=== PATIENT | male | born 1985 | race Caucasian/White ===

== ENCOUNTER 2016-09-30 16:42 | Emergency (ER) | payer SELFPAY ==
[~2016-09-30] VITALS: Ht 185.4 cm; Wt 90.0 kg
[2016-09-30 16:47] VITALS: BP 117/60; PULSE 86; RESP 17; TEMP 98.9; O2SAT 100
--- NOTE | 2016-09-30 16:51 | PD ---
Physical Exam Date Seen by Provider: Sep 30, 2016 Time Seen by Provider: 16:48 Narrative 31 y/o male with IV drug use Hx. of dilaudid use. Here with multiple cellulitis and abscess areas to both hands and wrists. Denies fever or chills. V/S stable. Awaiting bed placement. Data Data Last Documented VS Vital Signs Date Time Temp Pulse Resp B/P Pulse Ox O2 Delivery O2 Flow Rate FiO2 09/30/16 16:47 98.9 86 17 117/60 100 MDM Medical Record Reviewed: Yes Supervised Visit with EDEL: Yes Scripts No Active Prescriptions or Reported Meds Condition: Stable Fredy Williamson Sep 30, 2016 16:51
--- NOTE | 2016-09-30 17:52 | PD ---
HPI Chief Complaint: Skin Problem Time Seen by Provider: 17:49 Travel History International Travel<30 days: No Contact w/Intl Traveler<30days: No Traveled to known affect area: No History of Present Illness HPI 31-year-old male presents to the emergency department for evaluation of erythema , drainage, swelling to bilateral arms. Patient states that he injects IV Dilaudid. His last use he states was 4 days ago. He states he has had abscesses to his bilateral arms for approximately 2-3 months. He had a friend who gave him 3 weeks of Augmentin which he took. He states this was approximately one month ago. He states this did help his cellulitis, but it has not went away. He denies any fevers. He does report a history of hepatitis. He is not currently on any medications. [facility] Past Medical History Diminished Hearing: No Hepatitis: Yes (hep c) Social History Alcohol Use: No Tobacco Use: Yes (/2 ppd) Substance Use: Yes (IV dilaudid and marijuana) Allergies-Medications (Allergen,Severity, Reaction): Coded Allergies: No Known Allergies (Verified , 09/30/16) Reported Meds & Prescriptions Reported Meds & Active Scripts Active No Active Prescriptions or Reported Medications Review of Systems Except as stated in HPI: all other systems reviewed are Neg Physical Exam Narrative GENERAL: Well-nourished, well-developed male patient, afebrile. SKIN: Focused skin assessment warm/dry. Patient has diffuse swelling, drainage , erythema to bilateral forearms and hands. HEAD: Normocephalic. Atraumatic. EYES: No scleral icterus. No injection or drainage. NECK: Supple, trachea midline. No JVD or lymphadenopathy. CARDIOVASCULAR: Regular rate and rhythm without murmurs, gallops, or rubs. RESPIRATORY: Breath sounds equal bilaterally. No accessory muscle use. Lungs sounds are clear to auscultation. GASTROINTESTINAL: Abdomen soft, non-tender, nondistended. MUSCULOSKELETAL: No cyanosis. BACK: Nontender without obvious deformity. No CVA tenderness. Data Data Last Documented VS Vital Signs Date Time Temp Pulse Resp B/P Pulse Ox O2 Delivery O2 Flow Rate FiO2 09/30/16 16:47 98.9 86 17 117/60 100 Orders Iv Access Insert/Monitor (09/30/16 17:47) Complete Blood Count With Diff (09/30/16 17:47) Comprehensive Metabolic Panel (09/30/16 17:47) Blood Culture (09/30/16 17:47) Lactic Acid Sepsis Protocol (09/30/16 17:47) Vancomycin Inj (Vancomycin Inj) (09/30/16 18:00) Wound Culture And Gram Stain (09/30/16 17:48) [facility] Medical Decision Making Medical Screen Exam Complete: Yes Emergency Medical Condition: Yes Medical Record Reviewed: Yes Differential Diagnosis Cellulitis versus abscess versus sepsis Narrative Course 31-year-old male presents to the emergency department for evaluation of infection to his bilateral forearms he has had for approximately 2-3 months after injecting IV Dilaudid. He has taken 3 weeks worth of Augmentin approximately one month ago. Physical exam reveals significant cellulitis and drainage to the bilateral forearms. IV access is established. CBC, CMP, lactic acid, blood cultures 2, wound culture ordered and pending. Patient is given vancomycin 1 g IV. Patient does not want labs or IV access. He declines IV antibiotics. He declines admission. He states that he does not want to stay in the hospital because he cannot lose his job. Patient will be discharged prescription for Bactrim and clindamycin. He is aware of the risk of leaving AGAINST MEDICAL ADVICE up to and including . AMA: The risks of leaving against medical advice without further evaluation treatment were discussed with the patient. These risks include cardiac dysfunction, cardiac dysrhythmia, possible heart attack, possible stroke or . The patient indicated understanding of these risks and appeared to have the capacity to make this decision. Diagnosis Primary Impression: Left against medical advice Additional Impression: Cellulitis Qualified Code: L03.119 - Cellulitis of upper extremity, unspecified laterality Additional Instructions: Clean wounds to bilateral arms twice daily with soap and water. Keep wounds clean and dry. Take antibiotics as directed. Bactrim is free of [employer]. Clindamycin is inexpensive at [facility]. Stop injecting drugs. Follow-up with your primary care physician. Return to the emergency department for any acute worsening of symptoms. Med/Other Pt SpecificInfo: Prescription(s) given Scripts Sulfamethoxazole-Trimethoprim (Bactrim DS)800-160 Mg Tab1 Tab PO BID 14 Days Ref 0 Prov:Veronica Miller 09/30/16 Clindamycin 150 Mg [id number] Mg PO Q6H 14 Days Ref 0 Prov:Veronica Miller 09/30/16 Disposition: 07 AGAINST MEDICAL ADVICE Veronica Miller Sep 30, 2016 17:52
[2016-09-30] MEDS ORDERED: VANCOMYCIN INJ 1,000 MG in SODIUM CHLOR 0.9% 250 ML INJ 250 ML IV ONE (18:00)
[2016-09-30] MEDS ORDERED: BACT800T5 PO (18:07)
[2016-09-30] MEDS ORDERED: CLIN1CAP5 PO (18:07)
[2016-09-30 18:14] VITALS: PULSE 88; RESP 16; TEMP 99.1
[2016-09-30] MEDS ORDERED: SULFAMETHOXAZOLE-TRIMETHOPRIM DS 800-160 MG TAB PO ONE (18:15)
[2016-09-30] MEDS ORDERED: CLINDAMYCIN 150 MG CAP PO ONE (18:15)
== END 2016-09-30 18:44 | disposition left against medical advice (07) ==
LOC: NEPC 16:42
DX: L03.114 Cellulitis of left upper limb (principal); L03.113 Cellulitis of right upper limb; Z53.21 Procedure and treatment not carried out due to patient leaving prior to being seen by health care provider; B95.61 Methicillin susceptible Staphylococcus aureus infection as the cause of diseases classified elsewhere; B96.89 Other specified bacterial agents as the cause of diseases classified elsewhere; F17.210 Nicotine dependence, cigarettes, uncomplicated; F12.90 Cannabis use, unspecified, uncomplicated; F11.90 Opioid use, unspecified, uncomplicated
CPT/HCPCS: 86403; 87070; 87077; 87186; 87205; 99283

== ENCOUNTER 2016-12-09 06:51 | Emergency (ER) | payer SELFPAY ==
[~2016-12-09] VITALS: Ht 180.3 cm; Wt 77.0 kg
[~2016-12-09 06:51] MED LIST: BACT800T5 PO; CLIN1CAP5 PO
[2016-12-09 06:58] VITALS: BP 146/66; PULSE 102; RESP 16; TEMP 98.9; O2SAT 99
[2016-12-09] MEDS ORDERED: VANCOMYCIN INJ 1,150 MG in SODIUM CHLOR 0.9% 250 ML INJ 250 ML IV ONE (07:30)
[2016-12-09] MEDS ORDERED: KETOROLAC TROMETHAMINE 30 MG/ML (IVP) VIAL IV PUSH ONE (07:30)
--- NOTE | 2016-12-09 07:35 | PD ---
HPI Chief Complaint: Skin Problem Time Seen by Provider: 07:15 Travel History International Travel<30 days: No Contact w/Intl Traveler<30days: No Traveled to known affect area: No History of Present Illness HPI 31yo M with PMH of Hep C, IVDA presents to the ED with c/o bilateral forearm wounds for 2 months. Pt states his right forearm was draining mixture of purulent discharge and blood today and he thinks it is infected. Denies any fever, chest pain, sob, n/v, abdominal pain, focal weakness or numbness. Pt has been here in September and signed out against medical advice so this wound has been there for more than 2 months. States he last use IV dilaudid a few months ago. PFSH Past Medical History Diminished Hearing: No Hepatitis: Yes (hep c) Past Surgical History Surgical History: No Previous Surgery Social History Alcohol Use: No Tobacco Use: Yes (/2 ppd) Substance Use: Yes (IV dilaudid and marijuana) Allergies-Medications (Allergen,Severity, Reaction): Coded Allergies: No Known Allergies (Verified , 09/30/16) Reported Meds & Prescriptions Reported Meds & Active Scripts Active No Active Prescriptions or Reported Medications Review of Systems Except as stated in HPI: all other systems reviewed are Neg Physical Exam Narrative GENERAL: 31yo M in mild distress. SKIN: Focused skin assessment warm/dry. HEAD: Atraumatic. Normocephalic. EYES: Pupils equal and round. No scleral icterus. No injection or drainage. ENT: No nasal bleeding or discharge. Mucous membranes pink and moist. NECK: Trachea midline. No JVD. CARDIOVASCULAR: Regular rate and rhythm. No murmur appreciated. RESPIRATORY: No accessory muscle use. Clear to auscultation. Breath sounds equal bilaterally. GASTROINTESTINAL: Abdomen soft, non-tender, nondistended. MUSCULOSKELETAL: Bilateral forearms: +12cm by 6cm open wound with clear discharge and surrounding erythema and edema. FROM in bilateral elbows. Radial pulse 2+ right, 1+ left. Sensation intact. NEUROLOGICAL: Awake and alert. No obvious cranial nerve deficits. Motor grossly within normal limits. Normal speech. PSYCHIATRIC: Appropriate mood and affect; insight and judgment normal. Data Data Last Documented VS Vital Signs Date Time Temp Pulse Resp B/P Pulse Ox O2 Delivery O2 Flow Rate FiO2 12/09/16 07:03 17 12/09/16 06:58 98.9 102 146/66 99 Room Air Orders Complete Blood Count With Diff (12/09/16 07:26) Basic Metabolic Panel (Bmp) (12/09/16 07:26) Prothrombin Time / Inr (Pt) (12/09/16 07:26) Act Partial Throm Time (Ptt) (12/09/16 07:26) Lactic Acid Sepsis Protocol (12/09/16 07:26) Westergren Sedimentation Rate (12/09/16 07:26) C-Reactive Protein (Crp) (12/09/16 07:26) Vancomycin Inj (Vancomycin Inj) (12/09/16 07:30) Vascular Access Team Consult/P PRN (12/09/16 07:26) Vascular Poc Ultrasound (12/09/16 ) Blood Culture (12/09/16 07:28) Ct Forearm W Iv Contrast (12/09/16 ) Ketorolac Inj (Toradol Inj) (12/09/16 07:30) Ct Forearm W Iv Contrast (12/09/16 ) Labs Laboratory Tests Test 12/09/16 07:50 White Blood Count 11.3 TH/MM3 Red Blood Count 4.75 MIL/MM3 Hemoglobin 11.0 GM/DL Hematocrit 33.6 % Mean Corpuscular Volume 70.7 FL Mean Corpuscular Hemoglobin 23.2 PG Mean Corpuscular Hemoglobin 32.8 % Concent Red Cell Distribution Width 18.9 % Platelet Count 237 TH/MM3 Mean Platelet Volume 8.6 FL Neutrophils (%) (Auto) 58.7 % Lymphocytes (%) (Auto) 26.5 % Monocytes (%) (Auto) 10.7 % Eosinophils (%) (Auto) 3.2 % Basophils (%) (Auto) 0.9 % Neutrophils # (Auto) 6.7 TH/MM3 Lymphocytes # (Auto) 3.0 TH/MM3 Monocytes # (Auto) 1.2 TH/MM3 Eosinophils # (Auto) 0.4 TH/MM3 Basophils # (Auto) 0.1 TH/MM3 CBC Comment DIFF FINAL Differential Comment Erythrocyte Sedimentation Rate 44 mm/hr Prothrombin Time 11.8 SEC Prothromb Time International 1.1 RATIO Ratio Activated Partial 33.6 SEC Thromboplast Time Sodium Level 136 MEQ/L Potassium Level 3.7 MEQ/L Chloride Level 104 MEQ/L Carbon Dioxide Level 26.9 MEQ/L Anion Gap 5 MEQ/L Blood Urea Nitrogen 11 MG/DL Creatinine 0.73 MG/DL Estimat Glomerular Filtration 127 ML/MIN Rate Random Glucose 93 MG/DL Lactic Acid Level 1.6 mmol/L Calcium Level 8.4 MG/DL C-Reactive Protein 7.22 MG/DL [facility] Medical Decision Making Medical Screen Exam Complete: Yes Emergency Medical Condition: Yes Differential Diagnosis Chronic nonhealing wounds vs. abscess vs. osteomyelitis Narrative Course 31yo M with open wound to bilateral forearm concerning for abscess vs. osteomyelitis vs. early gangrene. Labs reviewed, mild leukocytosis at 11.3. ESR elevated at 44. C-reactive protein elevated at 7.22. Lactic acid normal. Pt given vancomycin IV and toradol for pain. Blood cultures were drawn. Pt is refusing CT bilateral forearm and is signing out against medical advice. Pt refused admission or wound care. AMA: The risks of leaving against medical advice without further evaluation treatment were discussed with the patient. These risks include cardiac dysfunction, cardiac dysrhythmia, possible heart attack, possible stroke or . The patient indicated understanding of these risks and appeared to have the capacity to make this decision. Pt left before discharge papers or prescriptions so no prescriptions were given since pt physically left. Diagnosis Primary Impression: Left against medical advice Patient Instructions: General Instructions Departure Forms: Tests/Procedures Additional Instructions: Please return to the ED if you change your mind. Med/Other Pt SpecificInfo: No Change to Meds Scripts No Active Prescriptions or Reported Meds Disposition: 07 AGAINST MEDICAL ADVICE Condition: Stable Bianka Arshad DO Dec 09, 2016 07:35
[2016-12-09 08:14] LABS: AUTOMATED NEUTROPHIL # 6.7 TH/MM3 (1.8-7.7); BASOPHIL # 0.1 TH/MM3 (0-0.2); BASOPHIL % 0.9 % (0.0-2.0); EOSINOPHIL # 0.4 TH/MM3 (0-0.4); EOSINOPHIL % 3.2 % (0.0-4.0); HEMATOCRIT 33.6 % (39.0-51.0); HEMO FLAGS DIFF FINAL; LYMPH % 26.5 % (9.0-44.0); MEAN CELL VOLUME 70.7 FL (80.0-100.0); MEAN CORPUSCULAR HEMOGLOBIN 23.2 PG (27.0-34.0); MEAN CORPUSCULAR HGB CONC 32.8 % (32.0-36.0); MONO % 10.7 % (0.0-8.0); NEUT % 58.7 % (16.0-70.0); PLATELET COUNT 237 TH/MM3 (150-450); RED BLOOD COUNT 4.75 MIL/MM3 (4.50-5.90); RED CELL DISTRIBUTION WIDTH 18.9 % (11.6-17.2); WHITE BLOOD COUNT 11.3 TH/MM3 (4.0-11.0)
[2016-12-09 08:24] LABS: APTT (PATIENT) 33.6 SEC (24.3-30.1); INTERNATIONAL NORMALIZED RATIO 1.1 RATIO; PROTHROMBIN TIME - PATIENT 11.8 SEC (9.8-11.6)
[2016-12-09 08:39] LABS: BICARBONATE 26.9 MEQ/L (21.0-32.0); POTASSIUM 3.7 MEQ/L (3.5-5.1)
== END 2016-12-09 09:58 | disposition left against medical advice (07) ==
LOC: NEPE 06:51
DX: S51.802D Unspecified open wound of left forearm, subsequent encounter (principal); S51.801D Unspecified open wound of right forearm, subsequent encounter; D72.829 Elevated white blood cell count, unspecified; F17.200 Nicotine dependence, unspecified, uncomplicated; B19.20 Unspecified viral hepatitis C without hepatic coma; X58.XXXD Exposure to other specified factors, subsequent encounter
CPT/HCPCS: 80048; 83605; 85025; 85610; 85652; 85730; 86140; 86403; 87040; 87186; 87205; 96374; 96375; 99285; J1885; J3370; J7050

== ENCOUNTER 2016-12-21 21:32 | Inpatient (IN) | payer SELFPAY ==
[~2016-12-21] VITALS: Ht 185.4 cm; Wt 79.0 kg
[2016-12-21 21:35] VITALS: BP 134/79; PULSE 114; RESP 20; TEMP 101.8; O2SAT 100
[2016-12-21] MEDS ORDERED: SODIUM CHLOR 0.9% 1000 ML INJ 1,000 ML IV ONE ×2 (21:55)
[2016-12-21] MEDS ORDERED: SODIUM CHLOR 0.9% 1000 ML INJ 400 ML IV ONE (21:55)
--- NOTE | 2016-12-21 21:59 | PD ---
HPI Chief Complaint: Skin Problem Time Seen by Provider: 21:59 Travel History International Travel<30 days: No Contact w/Intl Traveler<30days: No Traveled to known affect area: No History of Present Illness HPI 31-year-old male presents to the emergency department for evaluation of wounds to his bilateral forearms. The wounds have been ongoing for approximately 3-4 months. This is the third visit for the same issue. Patient has left AGAINST MEDICAL ADVICE the previous 2 times. He had previous blood cultures that came back positive. The patient reports injecting IV Dilaudid. He last used this morning. The patient comes in with a fever for 101.8. He states he did not know he was running fevers. He reports no chronic medical problems and takes no prescribed medications. Patient states that he will stay this time as he was evicted has nowhere to go. Patient is aware that he has a serious infection and needs IV antibiotics. PFSH Past Medical History Diminished Hearing: No Hepatitis: Yes (hep c) Social History Alcohol Use: No Tobacco Use: Yes (1/2 ppd) Substance Use: Yes (IV dilaudid and marijuana) Allergies-Medications (Allergen,Severity, Reaction): Coded Allergies: No Known Allergies (Verified , 12/21/16) Reported Meds & Prescriptions Reported Meds & Active Scripts Active No Active Prescriptions or Reported Medications Review of Systems Except as stated in HPI: all other systems reviewed are Neg Physical Exam Narrative GENERAL: Well-nourished, well-developed male patient, fever of 101.8. SKIN: Focused skin assessment warm/dry. Patient has open wounds to the bilateral forearms. Wound to the right forearm measures 13 cm x 7 cm and wound to the left forearm measures 10 cm x 6 cm. Drainage is noted to bilateral wounds. Wound culture is taken. HEAD: Normocephalic. Atraumatic. EYES: No scleral icterus. No injection or drainage. NECK: Supple, trachea midline. No JVD or lymphadenopathy. CARDIOVASCULAR: Regular rate and rhythm without murmurs, gallops, or rubs. Bilateral radial and pedal pulses are 2+. RESPIRATORY: Breath sounds equal bilaterally. No accessory muscle use. Lungs sounds are clear to auscultation. GASTROINTESTINAL: Abdomen soft, non-tender, nondistended. MUSCULOSKELETAL: No cyanosis, or edema. BACK: Nontender without obvious deformity. No CVA tenderness. Data Data Last Documented VS Vital Signs Date Time Temp Pulse Resp B/P Pulse Ox O2 Delivery O2 Flow Rate FiO2 12/21/16 22:14 100 Room Air 12/21/16 22:03 106 18 141/71 12/21/16 21:35 101.8 Orders Complete Blood Count With Diff (12/21/16 21:55) Comprehensive Metabolic Panel (12/21/16 21:55) Prothrombin Time / Inr (Pt) (12/21/16 21:55) Act Partial Throm Time (Ptt) (12/21/16 21:55) Lactic Acid Sepsis Protocol (12/21/16 21:55) Blood Culture (12/21/16 21:55) Wound Culture And Gram Stain (12/21/16 21:55) Ecg Monitoring (12/21/16 21:55) Iv Access Insert/Monitor (12/21/16 21:55) Oximetry (12/21/16 21:55) Oxygen Administration (12/21/16 21:55) Sodium Chlor 0.9% 1000 Ml Inj (Ns 1000 M (12/21/16 21:55) Sodium Chlor 0.9% 1000 Ml Inj (Ns 1000 M (12/21/16 21:55) Sodium Chlor 0.9% 1000 Ml Inj (Ns 1000 M (12/21/16 21:55) Vancomycin Inj (Vancomycin Inj) (12/21/16 22:00) Piperacil-Tazo 4.5 Gm Premix (Zosyn 4.5 (12/21/16 22:00) Westergren Sedimentation Rate (12/21/16 21:55) C-Reactive Protein (Crp) (12/21/16 21:55) Acetaminophen (Tylenol) (12/21/16 22:00) MDM Medical Decision Making Medical Screen Exam Complete: Yes Emergency Medical Condition: Yes Medical Record Reviewed: Yes Differential Diagnosis Sepsis versus cellulitis versus open wounds versus osteomyelitis Narrative Course 31-year-old male who presents to the emergency department for evaluation was to his bilateral forearms with fever. He has been seen twice for this and has left AGAINST MEDICAL ADVICE both times. Patient had previous positive blood culture. He does have history of IV drug use. CBC, CMP, lactic acid, PTT, PTT/ INR, blood cultures 2, wound culture, sedimentation rate, CRP are ordered and pending. Patient is given Tylenol 650 mg by mouth for fever. Patient is given 30 mL/kg of IV fluid. Patient started on vancomycin 1 g IV, Zosyn 4.5 g IV. My attending physician, Dr. Chew, will follow up on the lab results and admit patient Scripts No Active Prescriptions or Reported Meds Veronica Miller Dec 21, 2016 21:59
[2016-12-21] MEDS ORDERED: ACETAMINOPHEN 325 MG TAB PO ONE (22:00)
[2016-12-21] MEDS ORDERED: VANCOMYCIN INJ 1,000 MG in SODIUM CHLOR 0.9% 250 ML INJ 250 ML IV ONE (22:00)
[2016-12-21] MEDS ORDERED: PIPERACIL-TAZO 4.5 GM PREMIX 100 ML IV ONE (22:00)
[2016-12-21 22:03] VITALS: BP 141/71; PULSE 106; RESP 18; O2SAT 100
[2016-12-21 22:45] VITALS: TEMP 102.1
[2016-12-21 22:48] LABS: AUTOMATED NEUTROPHIL # 11.5 TH/MM3 (1.8-7.7); BASOPHIL # 0.1 TH/MM3 (0-0.2); BASOPHIL % 0.8 % (0.0-2.0); EOSINOPHIL # 0.1 TH/MM3 (0-0.4); EOSINOPHIL % 0.9 % (0.0-4.0); HEMATOCRIT 35.2 % (39.0-51.0); HEMO FLAGS DIFF FINAL; LYMPHOCYTE # 2.6 TH/MM3 (1.0-4.8); MEAN CELL VOLUME 70.1 FL (80.0-100.0); MEAN CORPUSCULAR HEMOGLOBIN 22.4 PG (27.0-34.0); MEAN CORPUSCULAR HGB CONC 31.9 % (32.0-36.0); MONO % 6.7 % (0.0-8.0); NEUT % 74.6 % (16.0-70.0); PLATELET COUNT 273 TH/MM3 (150-450); RED BLOOD COUNT 5.02 MIL/MM3 (4.50-5.90); RED CELL DISTRIBUTION WIDTH 19.5 % (11.6-17.2); WHITE BLOOD COUNT 15.4 TH/MM3 (4.0-11.0)
[2016-12-21] MEDS ORDERED: MORPHINE SULFATE 8 MG/ML INJ IV PUSH ONE (23:00)
[2016-12-21 23:02] LABS: APTT (PATIENT) 31.8 SEC (24.3-30.1); PROTHROMBIN TIME - PATIENT 11.4 SEC (9.8-11.6)
[2016-12-21 23:11] VITALS: BP 118/58; PULSE 102; RESP 18; O2SAT 99
[2016-12-21 23:14] LABS: ANION GAP 7 MEQ/L (5-15); AST (GOT) 26 U/L (15-37); BICARBONATE 26.3 MEQ/L (21.0-32.0); BLOOD UREA NITROGEN 11 MG/DL (7-18); CHLORIDE 100 MEQ/L (98-107); GLOMERULAR FILTRATION RATE 118 ML/MIN (>89); POTASSIUM 3.5 MEQ/L (3.5-5.1); SODIUM (NA) 133 MEQ/L (136-145)
[2016-12-21 23:15] LABS: ALT (GPT) 27 U/L (12-78)
[2016-12-21 23:17] LABS: ALKALINE PHOSPHATASE 109 U/L (45-117); TOTAL BILIRUBIN ADULT 0.3 MG/DL (0.2-1.0)
[2016-12-22] VITALS (9 sets, daily range): BP systolic 83–164; BP diastolic 46–84; PULSE 48–99; RESP 18; TEMP 97.3–99.3; O2SAT 98–100
--- NOTE | 2016-12-22 00:17 | PD ---
Data Data Last Documented VS Vital Signs Date Time Temp Pulse Resp B/P Pulse Ox O2 Delivery O2 Flow Rate FiO2 12/21/16 23:11 102 18 118/58 99 Room Air 12/21/16 22:45 102.1 Orders Complete Blood Count With Diff (12/21/16 21:55) Comprehensive Metabolic Panel (12/21/16 21:55) Prothrombin Time / Inr (Pt) (12/21/16 21:55) Act Partial Throm Time (Ptt) (12/21/16 21:55) Lactic Acid Sepsis Protocol (12/21/16 21:55) Blood Culture (12/21/16 21:55) Wound Culture And Gram Stain (12/21/16 21:55) Ecg Monitoring (12/21/16 21:55) Iv Access Insert/Monitor (12/21/16 21:55) Oximetry (12/21/16 21:55) Oxygen Administration (12/21/16 21:55) Sodium Chlor 0.9% 1000 Ml Inj (Ns 1000 M (12/21/16 21:55) Sodium Chlor 0.9% 1000 Ml Inj (Ns 1000 M (12/21/16 21:55) Sodium Chlor 0.9% 1000 Ml Inj (Ns 1000 M (12/21/16 21:55) Vancomycin Inj (Vancomycin Inj) (12/21/16 22:00) Piperacil-Tazo 4.5 Gm Premix (Zosyn 4.5 (12/21/16 22:00) Westergren Sedimentation Rate (12/21/16 21:55) C-Reactive Protein (Crp) (12/21/16 21:55) Acetaminophen (Tylenol) (12/21/16 22:00) Morphine Inj (Morphine Inj) (12/21/16 23:00) Admit Order (Ed Use Only) (12/22/16 00:15) Labs Laboratory Tests Test 12/21/16 22:20 White Blood Count 15.4 TH/MM3 Red Blood Count 5.02 MIL/MM3 Hemoglobin 11.2 GM/DL Hematocrit 35.2 % Mean Corpuscular Volume 70.1 FL Mean Corpuscular Hemoglobin 22.4 PG Mean Corpuscular Hemoglobin 31.9 % Concent Red Cell Distribution Width 19.5 % Platelet Count 273 TH/MM3 Mean Platelet Volume 8.5 FL Neutrophils (%) (Auto) 74.6 % Lymphocytes (%) (Auto) 17.0 % Monocytes (%) (Auto) 6.7 % Eosinophils (%) (Auto) 0.9 % Basophils (%) (Auto) 0.8 % Neutrophils # (Auto) 11.5 TH/MM3 Lymphocytes # (Auto) 2.6 TH/MM3 Monocytes # (Auto) 1.0 TH/MM3 Eosinophils # (Auto) 0.1 TH/MM3 Basophils # (Auto) 0.1 TH/MM3 CBC Comment DIFF FINAL Differential Comment Erythrocyte Sedimentation Rate 49 mm/hr Prothrombin Time 11.4 SEC Prothromb Time International 1.0 RATIO Ratio Activated Partial 31.8 SEC Thromboplast Time Sodium Level 133 MEQ/L Potassium Level 3.5 MEQ/L Chloride Level 100 MEQ/L Carbon Dioxide Level 26.3 MEQ/L Anion Gap 7 MEQ/L Blood Urea Nitrogen 11 MG/DL Creatinine 0.78 MG/DL Estimat Glomerular Filtration 118 ML/MIN Rate Random Glucose 97 MG/DL Lactic Acid Level 2.0 mmol/L Calcium Level 8.6 MG/DL Total Bilirubin 0.3 MG/DL Aspartate Amino Transf 26 U/L (AST/SGOT) Alanine Aminotransferase 27 U/L (ALT/SGPT) Alkaline Phosphatase 109 U/L C-Reactive Protein 3.30 MG/DL Total Protein 8.3 GM/DL Albumin 3.4 GM/DL [facility] Medical Record Reviewed: Yes Supervised Visit with EDEL: Yes Narrative Course I, Dr. lujan, have reviewed the advance practice practitioner's documentation and am in agreement, met with the patient face to face, made the diagnosis, and the medical decision making was done by me. *My assessment and Findings: Sepsis due to bl/ forearm infection, cellulitis and IVDA Physician Communication Physician Communication case reviewed with dr. pollock who accepts pt to service Diagnosis Primary Impression: Sepsis affecting skin Additional Impression: Cellulitis Admitting Information Admitting Physician Requests: Admit Scripts No Active Prescriptions or Reported Meds Ashleigh Lujan DO Dec 22, 2016 00:17
[2016-12-22] MEDS ORDERED: BISACODYL 10 MG SUPP RECTAL PRN (00:30)
[2016-12-22] MEDS ORDERED: SENNOSIDES 8.6 MG TAB PO PRN (00:30)
[2016-12-22] MEDS ORDERED: ACETAMINOPHEN 325 MG TAB PO PRN (00:30)
[2016-12-22] MEDS ORDERED: ONDANSETRON HCL 4 MG/2 ML VIAL IVP PRN (00:30)
[2016-12-22] MEDS ORDERED: MAGNESIUM HYDROXIDE SUSP 30 ML CUP PO PRN (00:30)
[2016-12-22] MEDS ORDERED: LACTULOSE SYRUP 20 GM/30 ML CUP PO PRN (00:30)
[2016-12-22] MEDS ORDERED: Vancomycin Consult Pharmacy 1 EA OTHER SCH (00:30)
[2016-12-22] MEDS: SODIUM CHLOR 0.9% 1000 ML INJ 1,000 ML IV SCH ×3 (01:47→20:45)
[2016-12-22] MEDS ORDERED: SODIUM CHLOR 0.9% 1000 ML INJ 1,000 ML IV ONE (02:00)
--- NOTE | 2016-12-22 02:31 | HHI.HP ---
[facility] No Primary Care Physician Admission Diagnosis Sepsis, b/l arm infection Diagnoses: (1) Sepsis Diagnosis: Principal (2) Cellulitis Diagnosis: Principal (3) IVDU (intravenous drug user) Diagnosis: Principal (4) Tobacco abuse Diagnosis: Principal Travel History International Travel<30 Days: No Contact w/Intl Traveler <30 Da: No Traveled to Known Affected Are: No History of Present Illness This is a 31-year-old male with PMH of Hepatitis C, Tobacco Abuse and IVDU who presented to the ER with complaints of bilateral upper extremity lesions. Symptoms have been ongoing for approx 3 months, seen in ER on multiple occasions for same, initially presented on 09/30/16 however Left AMA at that time. Presented again on 12/09/16 and Left AMA once again. On arrival, BP 141/71 , HR 106, O2 sat on her percent on RA, Temp 102.1. WBC 15.4. Chemistry essentially unremarkable. Lactic Acid 2.0. INR 1.0. Pt admits to ongoing IVDU w/ Dilaudid, last use today. Review of Systems Except as stated in HPI: all other systems reviewed are Neg ROS: 14 point review of systems otherwise negative. Past Family Social History Past Medical History PMH: Hepatitis C, Tobacco Abuse and IVDU Past Surgical History PAST SURGICAL HISTORY: None Allergies: Coded Allergies: No Known Allergies (Verified , 12/21/16) Family History PAST FAMILY HISTORY: Reviewed. No h/o DM or CAD Social History PAST SOCIAL HISTORY: Negative for alcohol. Smokes 1ppd. +IVDU w/ Dilaudid. Physical Exam Vital Signs Vital Signs Date Time Temp Pulse Resp B/P Pulse Ox O2 Delivery O2 Flow Rate FiO2 12/22/16 01:47 98.3 76 18 83/49 99 Room Air 12/22/16 00:18 99.3 92 18 110/57 100 Room Air 12/21/16 23:11 102 18 118/58 99 Room Air 12/21/16 22:45 102.1 12/21/16 22:14 100 Room Air 12/21/16 22:03 106 18 141/71 100 Room Air 12/21/16 21:35 101.8 114 20 134/79 100 Physical Exam PE: GENERAL: Young male in no acute distress. HEENT: PERRLA, EOMI. No scleral icterus or conjunctival pallor. No lid lag or facial droop. CARDIOVASCULAR: Regular rate and rhythm. No obvious murmurs to auscultation. No chest tenderness to palpation. RESPIRATORY: No obvious rhonchi or wheezing. Clear to auscultation. Breath sounds equal bilaterally. GASTROINTESTINAL: Abdomen soft, non-tender, nondistended. BS normal. MUSCULOSKELETAL: Extremities without clubbing, cyanosis, or edema. No obvious deformities. Open wounds to bilateral forearms, +purulent drainage. NEUROLOGICAL: Awake, alert and oriented x4. No focal neurologic deficits. Moving both upper and lower extremities spontaneously. Laboratory Laboratory Tests Test 12/21/16 22:20 White Blood Count 15.4 Red Blood Count 5.02 Hemoglobin 11.2 Hematocrit 35.2 Mean Corpuscular Volume 70.1 Mean Corpuscular Hemoglobin 22.4 Mean Corpuscular Hemoglobin 31.9 Concent Red Cell Distribution Width 19.5 Platelet Count 273 Mean Platelet Volume 8.5 Neutrophils (%) (Auto) 74.6 Lymphocytes (%) (Auto) 17.0 Monocytes (%) (Auto) 6.7 Eosinophils (%) (Auto) 0.9 Basophils (%) (Auto) 0.8 Neutrophils # (Auto) 11.5 Lymphocytes # (Auto) 2.6 Monocytes # (Auto) 1.0 Eosinophils # (Auto) 0.1 Basophils # (Auto) 0.1 CBC Comment DIFF FINAL Differential Comment Erythrocyte Sedimentation Rate 49 Prothrombin Time 11.4 Prothromb Time International 1.0 Ratio Activated Partial 31.8 Thromboplast Time Sodium Level 133 Potassium Level 3.5 Chloride Level 100 Carbon Dioxide Level 26.3 Anion Gap 7 Blood Urea Nitrogen 11 Creatinine 0.78 Estimat Glomerular Filtration 118 Rate Random Glucose 97 Lactic Acid Level 2.0 Calcium Level 8.6 Total Bilirubin 0.3 Aspartate Amino Transf 26 (AST/SGOT) Alanine Aminotransferase 27 (ALT/SGPT) Alkaline Phosphatase 109 C-Reactive Protein 3.30 Total Protein 8.3 Albumin 3.4 Date/Time Procedure Status Source Growth 12/21/16 22:25 Aerobic Blood Culture Received Blood Peripheral Pending 12/21/16 22:25 Anaerobic Blood Culture Received Blood Peripheral Pending 12/21/16 22:20 Gram Stain Received Wound Arm Pending 12/21/16 22:20 Wound Culture Received Wound Arm Pending Result Diagram: 12/21/16221912/21/162219 Assessment and Plan Problem List: (1) Sepsis ICD Code: A41.9 Status: Acute (2) Cellulitis ICD Code: L03.90 Status: Acute (3) IVDU (intravenous drug user) ICD Code: F19.90 Status: Acute (4) Tobacco abuse ICD Code: Z72.0 Status: Acute Assessment and Plan A/P: 1. Sepsis: Temp 102.1, HR 106, WBC 15.4, Source-UE Wound Infection. S/p Blood /Urine Culture, previous Blood Culture 12/09/16 +Staph. S/p Vanc/Zosyn in ER. Follow up cultures, continue w/ IV Abx. 2. Cellulitis: Bilateral forearm cellulitis w/ open wounds, +IVDU. Symptoms ongoing since 09/2016, has Left AMA on several occasions. Continue w/ IV Abx, Wound Management. 3. IVDU: w/ Dilaudid, ongoing, last use today. Ativan prn for withdrawal/ agitation. 4. Tobacco Abuse: Pt counselled. NicoDerm/Ativan prn if needed. 5. DVT Prophylaxis: SCD/Teds. 6. Social work for d/c planning as needed. 7. Case discussed w/ ER physician at length. Physician Certification 2 Midnight Certification Type: Admission for Inpatient Services Order for Inpatient Services The services are ordered in accordance with Medicare regulations or non- Medicare payer requirements, as applicable. In the case of services not specified as inpatient-only, they are appropriately provided as inpatient services in accordance with the 2-midnight benchmark. Estimated LOS (days): 2 days is the estimated time the patient will need to remain in the hospital, assuming treatment plan goals are met and no additional complications. Post-Hospital Plan: Not yet determined Tala Beard MD Dec 22, 2016 02:31
[2016-12-22] MEDS ORDERED: VANCOMYCIN INJ 1,200 MG in SODIUM CHLOR 0.9% 250 ML INJ 250 ML IV SCH (08:00)
[2016-12-22] MEDS: DOCUSATE SODIUM 50 MG/SENNA 8.6 MG TAB PO SCH ×2 (08:51→20:43)
[2016-12-22] MEDS: CEFEPIME INJ 1,000 MG in SODIUM CHLORIDE 0.9% INJ 100 ML IV SCH ×2 (08:51→20:45)
[2016-12-22] MEDS: SODIUM CHLORIDE 0.9% FLUSH 10 ML FLUSH IV FLUSH SCH ×2 (08:52→20:43)
[2016-12-22] MEDS: VANCOMYCIN INJ 1,250 MG in SODIUM CHLOR 0.9% 250 ML INJ 250 ML IV SCH ×2 (16:45→23:00)
[2016-12-22] MEDS: LORazepam 2 MG/ML VIAL IV PUSH PRN (22:59)
[2016-12-23] VITALS (8 sets, daily range): BP systolic 90–123; BP diastolic 50–66; PULSE 56–84; RESP 16–20; TEMP 97.4–98.5; O2SAT 93–100
[2016-12-23] MEDS: SODIUM CHLOR 0.9% 1000 ML INJ 1,000 ML IV SCH ×2 (06:12→16:21)
[2016-12-23] MEDS ORDERED: PHARMACY ORDERED LAB ONE (07:45)
[2016-12-23 08:49] LABS: ALKALINE PHOSPHATASE 106 U/L (45-117); ALT (GPT) 35 U/L (12-78); ANION GAP 6 MEQ/L (5-15); AST (GOT) 54 U/L (15-37); BICARBONATE 26.7 MEQ/L (21.0-32.0); BLOOD UREA NITROGEN 5 MG/DL (7-18); CHLORIDE 107 MEQ/L (98-107); GLOMERULAR FILTRATION RATE 145 ML/MIN (>89); SODIUM (NA) 140 MEQ/L (136-145); TOTAL BILIRUBIN ADULT 0.2 MG/DL (0.2-1.0)
[2016-12-23 08:58] LABS: POTASSIUM 5.4 MEQ/L (3.5-5.1)
[2016-12-23] MEDS: SODIUM CHLORIDE 0.9% FLUSH 10 ML FLUSH IV FLUSH SCH ×2 (09:00→20:14)
[2016-12-23] MEDS: VANCOMYCIN INJ 1,250 MG in SODIUM CHLOR 0.9% 250 ML INJ 250 ML IV SCH (10:04)
[2016-12-23] MEDS: DOCUSATE SODIUM 50 MG/SENNA 8.6 MG TAB PO SCH ×2 (10:04→20:14)
[2016-12-23] MEDS: LORazepam 2 MG/ML VIAL IV PUSH PRN ×3 (10:11→20:13)
[2016-12-23] MEDS: CEFEPIME INJ 1,000 MG in SODIUM CHLORIDE 0.9% INJ 100 ML IV SCH ×2 (11:18→20:13)
[2016-12-23 12:24] LABS: AUTOMATED NEUTROPHIL # 4.2 TH/MM3 (1.8-7.7); BASOPHIL % 0.1 % (0.0-2.0); EOSINOPHIL # 0.3 TH/MM3 (0-0.4); EOSINOPHIL % 3.4 % (0.0-4.0); HEMATOCRIT 33.6 % (39.0-51.0); HEMO FLAGS DIFF FINAL; LYMPH % 36.9 % (9.0-44.0); LYMPHOCYTE # 3.3 TH/MM3 (1.0-4.8); MEAN CELL VOLUME 71.3 FL (80.0-100.0); MEAN CORPUSCULAR HEMOGLOBIN 22.8 PG (27.0-34.0); MEAN CORPUSCULAR HGB CONC 31.9 % (32.0-36.0); MONO % 12.8 % (0.0-8.0); NEUT % 46.8 % (16.0-70.0); PLATELET COUNT 246 TH/MM3 (150-450); RED BLOOD COUNT 4.71 MIL/MM3 (4.50-5.90); RED CELL DISTRIBUTION WIDTH 19.2 % (11.6-17.2); WHITE BLOOD COUNT 8.9 TH/MM3 (4.0-11.0)
--- NOTE | 2016-12-23 14:39 | HHI.PR ---
Subjective Remarks c/o chills denies fevers c/o pain in upper extremities no further fevers Objective Vitals Vital Signs Date Time Temp Pulse Resp B/P Pulse Ox O2 Delivery O2 Flow Rate FiO2 12/23/16 12:00 97.9 64 18 123/56 100 12/23/16 08:00 97.4 72 20 100/66 100 12/23/16 04:00 97.5 58 18 90/50 97 12/23/16 01:55 63 12/23/16 00:31 98.0 75 16 123/57 93 12/22/16 20:28 97.9 67 18 100/52 100 12/22/16 16:00 98.0 99 18 164/84 99 I/O 12/22/16 12/22/16 12/22/16 12/23/16 12/23/16 12/23/16 07:00 15:00 23:00 07:00 15:00 23:00 Intake Total 310 ml 1490 ml 880 ml Balance 310 ml 1490 ml 880 ml Intake Oral 60 ml IV Total 250 ml 1490 ml 880 ml # Voids 6 2 # Bowel Movements 0 0 Result Diagram: 12/23/16 1200 12/23/16 0751 Objective Remarks GENERAL: Young male in no acute distress. HEENT: PERRLA, EOMI. No scleral icterus or conjunctival pallor. No lid lag or facial droop. CARDIOVASCULAR: Regular rate and rhythm. No obvious murmurs to auscultation. No chest tenderness to palpation. RESPIRATORY: No obvious rhonchi or wheezing. Clear to auscultation. Breath sounds equal bilaterally. GASTROINTESTINAL: Abdomen soft, non-tender, nondistended. BS normal. MUSCULOSKELETAL: Extremities without clubbing, cyanosis, or edema. No obvious deformities. Open wounds to bilateral forearms, +purulent drainage. NEUROLOGICAL: Awake, alert and oriented x4. No focal neurologic deficits. Moving both upper and lower extremities spontaneously. Medications and IVs Current Medications Medications (Trade) Dose Ordered Sig/Jess Route Start Time Stop Time Status Last Admin Pharmacy Profile Note 0 ml @ 0 mls/hr UNSCH OTHER 12/22/16 00:30 Cefepime HCl 1000 mg/Sodium Chloride 100 ml @ 200 mls/hr Q12H IV 12/22/16 09:00 12/24/16 09:53 (NS 1000 ml Inj) 1,000 ml @ 100 mls/hr Q10H IV 12/22/16 00:21 12/24/16 07:44 (NS Flush) 2 ml UNSCH PRN IV FLUSH 12/22/16 00:30 (NS Flush) 2 ml BID IV FLUSH 12/22/16 09:00 12/23/16 20:14 (Zofran Inj) 4 mg Q6H PRN IVP 12/22/16 00:30 (Tylenol) 650 mg Q6H PRN PO 12/22/16 00:30 (Roxicodone) 10 mg Q4H PRN PO 12/22/16 00:30 12/24/16 09:56 (Roxicodone) 5 mg Q4H PRN PO 12/22/16 00:30 (Soila-Colace) 1 tab BID PO 12/22/16 09:00 12/24/16 09:56 (Milk Of Magnesia Liq) 30 ml Q12H PRN PO 12/22/16 00:30 (Senokot) 17.2 mg Q12H PRN PO 12/22/16 00:30 (Dulcolax Supp) 10 mg DAILY PRN RECTAL 12/22/16 00:30 (Lactulose Liq) 30 ml DAILY PRN PO 12/22/16 00:30 Lorazepam 1 mg 1 mg Q4H PRN IV PUSH 12/22/16 00:30 12/24/16 07:43 (Vancomycin Inj/ NS 500 ml Inj) 515 ml @ 250 mls/hr Q8H IV 12/23/16 16:00 12/24/16 07:44 Miscellaneous Information SPECIFIC LAB TO BE DRAWN:VANCOMYCIN TROUGH DATE TO... ONCE ONCE .XX 12/24/16 15:45 12/24/16 15:46 Urinary Catheter: No Vascular Central Line Catheter: No A/P Problem List: (1) Sepsis ICD Code: A41.9 Status: Acute Plan: improving. No further fevers. Continue Iv antibiotics blood cultures growing staph aureus and gram negative rods (2) Cellulitis ICD Code: L03.90 Status: Acute Plan: Bilateral forearm cellulitis w/ open wounds, +IVDU. Symptoms ongoing since 09/2016, has Left AMA on several occasions. Continue w/ IV Abx, Wound Management. (3) IVDU (intravenous drug user) ICD Code: F19.90 Status: Acute Plan: w/ Dilaudid, ongoing, last use on day of admission. Ativan prn for withdrawal/agitation. Patient requesting IV pain medications. (4) Tobacco abuse ICD Code: Z72.0 Status: Acute Plan: Pt counselled. NicoDerm/Ativan prn if needed Assessment and Plan DVT Prophylaxis: SCD/Teds. Problem Qualifiers (1) Sepsis: Qualified Code: A41.9 - Sepsis, due to unspecified organism Brayden Garcia MD Dec 23, 2016 14:39
[2016-12-23] MEDS: VANCOMYCIN INJ 1,500 MG in SODIUM CHLORID 0.9% 500 ML INJ 500 ML IV SCH ×2 (16:19→23:26)
[2016-12-23] MEDS ORDERED: MORPHINE SULFATE 4 MG/ML INJ IV PUSH ONE (17:15)
[2016-12-24] VITALS (9 sets, daily range): BP systolic 101–124; BP diastolic 56–72; PULSE 56–101; RESP 17–20; TEMP 97.3–98.8; O2SAT 98–100
[2016-12-24] MEDS: LORazepam 2 MG/ML VIAL IV PUSH PRN ×5 (00:08→20:36)
[2016-12-24] MEDS: SODIUM CHLOR 0.9% 1000 ML INJ 1,000 ML IV SCH ×3 (01:44→12:21)
[2016-12-24] MEDS: VANCOMYCIN INJ 1,500 MG in SODIUM CHLORID 0.9% 500 ML INJ 500 ML IV SCH ×2 (07:44→18:21)
[2016-12-24] MEDS: SODIUM CHLORIDE 0.9% FLUSH 10 ML FLUSH IV FLUSH SCH ×2 (09:00→20:17)
[2016-12-24] MEDS: CEFEPIME INJ 1,000 MG in SODIUM CHLORIDE 0.9% INJ 100 ML IV SCH ×2 (09:53→20:16)
[2016-12-24] MEDS: DOCUSATE SODIUM 50 MG/SENNA 8.6 MG TAB PO SCH ×2 (09:56→20:17)
[2016-12-24] MEDS ORDERED: PHARMACY ORDERED LAB ONE (15:45)
[2016-12-24] MEDS ORDERED: KETOROLAC TROMETHAMINE 30 MG/ML (IVP) VIAL IV PUSH ONE (16:45)
[2016-12-24 17:32] LABS: AUTOMATED NEUTROPHIL # 5.1 TH/MM3 (1.8-7.7); BASOPHIL # 0.1 TH/MM3 (0-0.2); BASOPHIL % 1.3 % (0.0-2.0); EOSINOPHIL # 0.2 TH/MM3 (0-0.4); EOSINOPHIL % 2.2 % (0.0-4.0); HEMATOCRIT 33.2 % (39.0-51.0); HEMO FLAGS DIFF FINAL; LYMPH % 35.1 % (9.0-44.0); LYMPHOCYTE # 3.3 TH/MM3 (1.0-4.8); MEAN CELL VOLUME 71.4 FL (80.0-100.0); MEAN CORPUSCULAR HEMOGLOBIN 23.3 PG (27.0-34.0); MEAN CORPUSCULAR HGB CONC 32.7 % (32.0-36.0); MONO % 7.1 % (0.0-8.0); NEUT % 54.3 % (16.0-70.0); PLATELET COUNT 279 TH/MM3 (150-450); RED BLOOD COUNT 4.65 MIL/MM3 (4.50-5.90); RED CELL DISTRIBUTION WIDTH 19.6 % (11.6-17.2); WHITE BLOOD COUNT 9.4 TH/MM3 (4.0-11.0)
[2016-12-24 18:00] LABS: ALKALINE PHOSPHATASE 92 U/L (45-117); ALT (GPT) 33 U/L (12-78); ANION GAP 8 MEQ/L (5-15); AST (GOT) 30 U/L (15-37); BICARBONATE 25.8 MEQ/L (21.0-32.0); BLOOD UREA NITROGEN 6 MG/DL (7-18); CHLORIDE 107 MEQ/L (98-107); GLOMERULAR FILTRATION RATE 136 ML/MIN (>89); POTASSIUM 3.9 MEQ/L (3.5-5.1); SODIUM (NA) 141 MEQ/L (136-145); TOTAL BILIRUBIN ADULT 0.1 MG/DL (0.2-1.0); VANCOMYCIN TROUGH 15.7 MCG/ML (5.0-10.0)
--- NOTE | 2016-12-24 18:40 | HHI.PR ---
Subjective Remarks c/o persistent severe pain in upper extremities denies fevers/chills denies cp/sob denies diarrhea denies nausea/vomiting no rash Objective Vitals Vital Signs Date Time Temp Pulse Resp B/P Pulse Ox O2 Delivery O2 Flow Rate FiO2 12/24/16 15:54 98.2 89 18 124/66 100 12/24/16 12:04 97.6 85 18 101/56 100 12/24/16 08:04 97.3 61 17 107/59 100 12/24/16 04:00 97.7 65 18 108/59 100 12/24/16 01:49 87 12/24/16 00:00 98.8 89 18 115/72 98 12/23/16 20:50 98.5 84 20 122/57 98 I/O 12/23/16 12/23/16 12/23/16 12/24/16 12/24/16 12/24/16 06:59 14:59 22:59 06:59 14:59 22:59 Intake Total 880 ml 860 ml 2020 ml 1468 ml Output Total 1 ml Balance 880 ml 860 ml 2019 ml 1468 ml Intake Oral 480 ml IV Total 880 ml 860 ml 2020 ml 988 ml Output Stool Total 1 ml # Voids 2 4 4 3 # Bowel Movements 0 1 1 Result Diagram: 12/24/16165212/24/161652 Objective Remarks GENERAL: Young male in no acute distress. HEENT: PERRLA, EOMI. No scleral icterus or conjunctival pallor. No lid lag or facial droop. CARDIOVASCULAR: Regular rate and rhythm. No obvious murmurs to auscultation. No chest tenderness to palpation. RESPIRATORY: No obvious rhonchi or wheezing. Clear to auscultation. Breath sounds equal bilaterally. GASTROINTESTINAL: Abdomen soft, non-tender, nondistended. BS normal. MUSCULOSKELETAL: Extremities without clubbing, cyanosis, or edema. No obvious deformities. Open wounds to bilateral forearms, +purulent drainage. NEUROLOGICAL: Awake, alert and oriented x4. No focal neurologic deficits. Moving both upper and lower extremities spontaneously. Procedures none Medications and IVs Current Medications Medications (Trade) Dose Ordered Sig/Jess Route Start Time Stop Time Status Last Admin Pharmacy Profile Note 0 ml @ 0 mls/hr UNSCH OTHER 12/22/16 00:30 Cefepime HCl 1000 mg/Sodium Chloride 100 ml @ 200 mls/hr Q12H IV 12/22/16 09:00 12/24/16 09:53 (NS 1000 ml Inj) 1,000 ml @ 100 mls/hr Q10H IV 12/22/16 00:21 12/24/16 07:44 (NS Flush) 2 ml UNSCH PRN IV FLUSH 12/22/16 00:30 (NS Flush) 2 ml BID IV FLUSH 12/22/16 09:00 12/23/16 20:14 (Zofran Inj) 4 mg Q6H PRN IVP 12/22/16 00:30 (Tylenol) 650 mg Q6H PRN PO 12/22/16 00:30 (Roxicodone) 10 mg Q4H PRN PO 12/22/16 00:30 12/24/16 18:21 (Roxicodone) 5 mg Q4H PRN PO 12/22/16 00:30 (Soila-Colace) 1 tab BID PO 12/22/16 09:00 12/24/16 09:56 (Milk Of Magnesia Liq) 30 ml Q12H PRN PO 12/22/16 00:30 (Senokot) 17.2 mg Q12H PRN PO 12/22/16 00:30 (Dulcolax Supp) 10 mg DAILY PRN RECTAL 12/22/16 00:30 (Lactulose Liq) 30 ml DAILY PRN PO 12/22/16 00:30 Lorazepam 1 mg 1 mg Q4H PRN IV PUSH 12/22/16 00:30 12/24/16 15:59 (Vancomycin Inj/ NS 500 ml Inj) 515 ml @ 250 mls/hr Q8H IV 12/23/16 16:00 12/24/16 18:21 Urinary Catheter: No Vascular Central Line Catheter: No A/P Problem List: (1) Sepsis ICD Code: A41.9 Status: Resolved Plan: improving. No further fevers. Continue Iv antibiotics blood cultures growing staph aureus, proteus mirabilis and gram negative rods Consult Infectious disease DC IV Fluids (2) Cellulitis ICD Code: L03.90 Status: Acute Plan: Bilateral forearm cellulitis w/ open wounds, +IVDU. Symptoms ongoing since 09/2016, has Left AMA on several occasions. Continue w/ IV Abx, Wound Management. (3) IVDU (intravenous drug user) ICD Code: F19.90 Status: Acute Plan: w/ Dilaudid, ongoing, last use on day of admission. Ativan prn for withdrawal/agitation. Patient requesting IV pain medications. (4) Tobacco abuse ICD Code: Z72.0 Status: Acute Plan: Pt counselled. Will Rx nicotine patch. Assessment and Plan DVT Prophylaxis: SCD/Teds. Discharge Planning Pending ID consult Problem Qualifiers (1) Sepsis: Qualified Code: A41.9 - Sepsis, due to unspecified organism Brayden Garcia MD Dec 24, 2016 18:39
[2016-12-24] MEDS ORDERED: HYDROmorphone HCL 2 MG TAB PO PRN (18:45)
[2016-12-24] MEDS ORDERED: PILL SPLITTER OTHER PRN (19:30)
[2016-12-24] MEDS: HYDROmorphone HCL 2 MG TAB PO PRN (20:15)
[2016-12-25] VITALS (7 sets, daily range): BP systolic 84–131; BP diastolic 45–70; PULSE 74–100; RESP 18–20; TEMP 97.9–99.3; O2SAT 96–100
[2016-12-25] MEDS: HYDROmorphone HCL 2 MG TAB PO PRN ×4 (00:49→13:27)
[2016-12-25] MEDS: LORazepam 2 MG/ML VIAL IV PUSH PRN ×5 (00:49→20:43)
[2016-12-25] MEDS: VANCOMYCIN INJ 1,500 MG in SODIUM CHLORID 0.9% 500 ML INJ 500 ML IV SCH ×3 (00:53→16:10)
[2016-12-25] MEDS: SODIUM CHLORIDE 0.9% FLUSH 10 ML FLUSH IV FLUSH SCH ×2 (08:14→21:30)
[2016-12-25] MEDS: DOCUSATE SODIUM 50 MG/SENNA 8.6 MG TAB PO SCH ×2 (08:14→21:30)
--- NOTE | 2016-12-25 10:32 | PD.WCN.NOT ---
Wound Consult Description: Consult placed for bilateral upper abrasions per protocol under Dr Dubon/ REGINA on 12/22/16 Communicated with: ALEKSANDR Santiago Dr Recommendation: Gently cleanse bilateral forearms with wound cleanser and gauze daily. Apply Single layer Xeroform and dry cover daily. Additional Information: Patient seen on [facility] for bilateral forearm wounds. Dressing on left forearm removed to reveal 100% pink moist wound bed with no active drainage and no odor noted. Wound bed appearance is bumpy and crater like with scant serosang exudate noted to removed dressing. Wound was gently cleansed with wound cleanser and gauze. Measurements of the left forearm are 10cm x 6.3cm x 0.4cm. Wound margins are ~50% open with ~50% dried non friable crust segmentally and circumferentially. Periwound is thickened with discolored scar tissue. Right forearm dressing was removed to reveal a wound measuring 13cm x 6cm x 0.6cm that is moderately comparable to the left forearm with a 100% pink, moist, bumpy wound bed without active drainage. Wound margins are open and covered in dried non friable crust segmentally and circumferentially with thickened and discolored scar tissue. Bilateral forearm wounds of unknown etiology were covered in single layer Xeroform and dry covers secured with rolled gauze dated today and recommended to be changed daily. Florinda Alejandre [facility] Dec 25, 2016 10:32
[2016-12-25] MEDS: CEFEPIME INJ 1,000 MG in SODIUM CHLORIDE 0.9% INJ 100 ML IV SCH (11:03)
--- NOTE | 2016-12-25 13:55 | PD.ID.CON ---
History of Present Illness Service ID Consult Requested By Reason for Consult Evaluation and Mment of Bilateral UE cellulitis. Primary Care Physician No Primary Care Physician Diagnoses: History of Present Illness is a 31 y/o CM with PMH of Hepatitis C, Tobacco Abuse and IVDU who presented to the ER with complaints of bilateral upper extremity lesions. Symptoms have been ongoing for approx 3 months, seen in ER on multiple occasions for same, initially presented on 09/30/16 however Left AMA at that time. Presented again on 12/09/16 and Left AMA once again. On arrival, BP 141/71 , HR 106, O2 sat on her percent on RA, Temp 102.1. WBC 15.4. Chemistry essentially unremarkable. Lactic Acid 2.0. INR 1.0. Pt admits to ongoing IVDU w/ Dilaudid, last use on day of admission. Denies any prior endocarditis or epidural abscess. Denies any fever, chills, and night sweats. Denies any other systemic symptoms. ID consulted for evaluation and Mment of Bilateral UE cellulitis. Review of Systems ROS Limitations: Poor Historian Constitutional: DENIES: Diaphoretic episodes, Fatigue, Fever, Weight gain, Weight loss, Chills, Dizziness, Change in appetite, Night Sweats Endocrine: DENIES: Heat/cold intolerance, Polydipsia, Polyuria, Polyphagia Eyes: DENIES: Blurred vision, Diplopia, Eye inflammation, Eye pain, Vision loss , Photosensitivity, Double Vision Ears, nose, mouth, throat: DENIES: Tinnitus, Hearing loss, Vertigo, Nasal discharge, Oral lesions, Throat pain, Hoarseness, Ear Pain, Running Nose, Epistaxis, Sinus Pain, Toothache, Odynophagia Respiratory: DENIES: Apneas, Cough, Snoring, Wheezing, Hemoptysis, Sputum production, Shortness of breath Cardiovascular: DENIES: Chest pain, Palpitations, Syncope, Dyspnea on Exertion , PND, Lower Extremity Edema, Orthopnea, Claudication Gastrointestinal: DENIES: Abdominal pain, Black stools, Bloody stools, Constipation, Diarrhea, Nausea, Vomiting, Difficulty Swallowing, Anorexia Genitourinary: DENIES: Sexual dysfunction, Urinary frequency, Urinary incontinence, Urgency, Hematuria, Dysuria, Nocturia, Penile Discharge, Testicular Pain, Testicular Swelling Musculoskeletal: DENIES: Joint pain, Muscle aches, Stiffness, Joint Swelling, Back pain, Neck pain Integumentary: DENIES: Abnormal pigmentation, Nail changes, Pruritus, Rash Hematologic/lymphatic: DENIES: Bruising, Lymphadenopathy Immunologic/allergic: DENIES: Eczema, Urticaria Neurologic: DENIES: Abnormal gait, Headache, Localized weakness, Paresthesias, Seizures, Speech Problems, Tremor, Poor Balance Psychiatric: DENIES: Anxiety, Confusion, Mood changes, Depression, Hallucinations, Agitation, Suicidal Ideation, Homicidal Ideation, Delusions Except as stated in HPI: all other systems reviewed are Neg Past Family Social History Allergies: Coded Allergies: No Known Allergies (Verified , 12/21/16) Past Medical History Hepatitis C, Tobacco Abuse IVDU Past Surgical History None per patient. Reported Medications Reported Meds & Active Scripts Active No Active Prescriptions or Reported Medications Active Ordered Medications Current Medications Medications (Trade) Dose Ordered Sig/Jess Route Start Time Stop Time Status Last Admin Pharmacy Profile Note 0 ml @ 0 mls/hr UNSCH OTHER 12/22/16 00:30 (Maxipime Inj/NS Inj) 100 ml @ 200 mls/hr Q12H IV 12/22/16 09:00 12/25/16 11:03 (NS Flush) 2 ml UNSCH PRN IV FLUSH 12/22/16 00:30 (NS Flush) 2 ml BID IV FLUSH 12/22/16 09:00 12/25/16 08:14 (Zofran Inj) 4 mg Q6H PRN IVP 12/22/16 00:30 (Tylenol) 650 mg Q6H PRN PO 12/22/16 00:30 (Soial-Colace) 1 tab BID PO 12/22/16 09:00 12/24/16 09:56 (Milk Of Magnesia Liq) 30 ml Q12H PRN PO 12/22/16 00:30 (Senokot) 17.2 mg Q12H PRN PO 12/22/16 00:30 (Dulcolax Supp) 10 mg DAILY PRN RECTAL 12/22/16 00:30 (Lactulose Liq) 30 ml DAILY PRN PO 12/22/16 00:30 Lorazepam 1 mg 1 mg Q4H PRN IV PUSH 12/22/16 00:30 12/25/16 16:10 (Vancomycin Inj/ NS 500 ml Inj) 515 ml @ 250 mls/hr Q8H IV 12/23/16 16:00 12/25/16 16:10 (Dilaudid) 1 mg Q4H PRN PO 12/24/16 18:45 (Dilaudid) 2 mg Q4H PRN PO 12/24/16 18:45 12/25/16 13:27 (Pill Splitter) 1 ea UNSCH PRN OTHER 12/24/16 19:30 Family History reviewed and NC Social History Negative for alcohol. Smokes one pack per day for many years IV drug abuse with Dilaudid. Physical Exam Vital Signs Vital Signs Date Time Temp Pulse Resp B/P Pulse Ox O2 Delivery O2 Flow Rate FiO2 12/25/16 08:28 97.9 88 20 112/60 99 12/25/16 05:29 98.2 80 20 97/50 100 12/25/16 02:07 98.1 84 20 122/68 100 12/24/16 21:06 98.6 79 20 118/56 99 12/24/16 20:16 101 12/24/16 15:54 98.2 89 18 124/66 100 Physical Exam GENERAL: This is a well-nourished, well-developed patient, in no apparent distress. SKIN: No rashes, ecchymoses or lesions. Cool and dry. HEAD: Atraumatic. Normocephalic. No temporal or scalp tenderness. EYES: Pupils equal round and reactive. Extraocular motions intact. No scleral icterus. No injection or drainage. ENT: Nose without bleeding, purulent drainage or septal hematoma. Throat without erythema, tonsillar hypertrophy or exudate. Uvula midline. Airway patent. NECK: Trachea midline. No JVD or lymphadenopathy. Supple, nontender, no meningeal signs. CARDIOVASCULAR: Regular rate and rhythm without murmurs, gallops, or rubs. RESPIRATORY: Clear to auscultation. Breath sounds equal bilaterally. No wheezes , rales, or rhonchi. GASTROINTESTINAL: Abdomen soft, non-tender, nondistended. No hepato-splenomegaly , or palpable masses. No guarding. MUSCULOSKELETAL: Bilateral LE with oozing noted and ulcerations with surrounding erythema and induration. NEUROLOGICAL: Awake and alert. Cranial nerves II through XII intact. Motor and sensory grossly within normal limits. Five out of 5 muscle strength in all muscle groups. Normal speech. Psych: cooperative IV line sites with no e.o infection. Laboratory Laboratory Tests Test 12/24/16 16:53 White Blood Count 9.4 Red Blood Count 4.65 Hemoglobin 10.9 Hematocrit 33.2 Mean Corpuscular Volume 71.4 Mean Corpuscular Hemoglobin 23.3 Mean Corpuscular Hemoglobin 32.7 Concent Red Cell Distribution Width 19.6 Platelet Count 279 Mean Platelet Volume 8.9 Neutrophils (%) (Auto) 54.3 Lymphocytes (%) (Auto) 35.1 Monocytes (%) (Auto) 7.1 Eosinophils (%) (Auto) 2.2 Basophils (%) (Auto) 1.3 Neutrophils # (Auto) 5.1 Lymphocytes # (Auto) 3.3 Monocytes # (Auto) 0.7 Eosinophils # (Auto) 0.2 Basophils # (Auto) 0.1 CBC Comment DIFF FINAL Differential Comment Sodium Level 141 Potassium Level 3.9 Chloride Level 107 Carbon Dioxide Level 25.8 Anion Gap 8 Blood Urea Nitrogen 6 Creatinine 0.69 Estimat Glomerular Filtration 136 Rate Random Glucose 113 Calcium Level 8.4 Phosphorus Level 2.6 Magnesium Level 2.0 Total Bilirubin 0.1 Aspartate Amino Transf 30 (AST/SGOT) Alanine Aminotransferase 33 (ALT/SGPT) Alkaline Phosphatase 92 Total Protein 7.1 Albumin 2.6 Vancomycin Level Trough 15.7 Date/Time Procedure Status Source Growth 12/21/16 22:25 Aerobic Blood Culture - Preliminary Resulted Blood Peripheral NO GROWTH IN 4 DAYS 12/21/16 22:25 Anaerobic Blood Culture - Preliminary Resulted Blood Peripheral NO GROWTH IN 4 DAYS 12/21/16 22:20 Gram Stain - Final Complete Wound Arm 12/21/16 22:20 Wound Culture - Final Complete Staphylococcus Aureus Proteus Mirabilis Gram Negative Karsten Result Diagram: 12/24/16 1653 12/24/16 1653 Assessment and Plan Assessment and Plan Bilateral UE cellulitis MSSA, Proteus and Strep in wound cultures H/o transient MSSA bacteremia last visit to [place] in early December. Repeat BCX negative so far. IVDA Hep C history Recs: DC cefepime IV Continue Vanco IV (target 10-15) for cellulitis. Start Levaquin for Gram negatives in cultures Proteus. Follow cultures Follow clinically. D/w CM: if repeat bcx negative will consider discharging patient home after one dose of Dalvance and Levaquin oral for 2 weeks. Will follow in am to decide and work on patient assistance for Dalvance approval. Maggy Dixon MD Dec 25, 2016 1:55 pm
--- NOTE | 2016-12-25 14:10 | HHI.PR ---
Subjective Remarks denies fevers/chills denies cp/sob denies rash, diarrhea upset because peripheral iv line over left arm infiltrated states pain on both arms is not well controlled Objective Vitals Vital Signs Date Time Temp Pulse Resp B/P Pulse Ox O2 Delivery O2 Flow Rate FiO2 12/25/16 08:28 97.9 88 20 112/60 99 12/25/16 05:29 98.2 80 20 97/50 100 12/25/16 02:07 98.1 84 20 122/68 100 12/24/16 21:06 98.6 79 20 118/56 99 12/24/16 20:16 101 12/24/16 15:54 98.2 89 18 124/66 100 I/O 12/24/16 12/24/16 12/24/16 12/25/16 12/25/16 12/25/16 07:00 15:00 23:00 07:00 15:00 23:00 Intake Total 2020 ml 1468 ml Output Total 1 ml Balance 2019 ml 1468 ml Intake Oral 480 ml IV Total 2020 ml 988 ml Output Stool Total 1 ml # Voids 4 3 3 # Bowel Movements 1 1 Result Diagram: 12/24/16 1653 12/24/16 1653 Objective Remarks GENERAL: Young male in no acute distress. HEENT: PERRLA, EOMI. No scleral icterus or conjunctival pallor. No lid lag or facial droop. CARDIOVASCULAR: Regular rate and rhythm. No obvious murmurs to auscultation. No chest tenderness to palpation. RESPIRATORY: No obvious rhonchi or wheezing. Clear to auscultation. Breath sounds equal bilaterally. GASTROINTESTINAL: Abdomen soft, non-tender, nondistended. BS normal. MUSCULOSKELETAL: Extremities without clubbing, cyanosis, or edema. No obvious deformities. Open wounds to bilateral forearms, +purulent drainage. NEUROLOGICAL: Awake, alert and oriented x4. No focal neurologic deficits. Moving both upper and lower extremities spontaneously. Procedures none Medications and IVs Current Medications Medications (Trade) Dose Ordered Sig/Jess Route Start Time Stop Time Status Last Admin (Vancomycin Consult Pharmacy) 0 ml @ 0 mls/hr UNSCH OTHER 12/22/16 00:30 (NS Flush) 2 ml UNSCH PRN IV FLUSH 12/22/16 00:30 (NS Flush) 2 ml BID IV FLUSH 12/22/16 09:00 12/25/16 21:30 (Zofran Inj) 4 mg Q6H PRN IVP 12/22/16 00:30 (Tylenol) 650 mg Q6H PRN PO 12/22/16 00:30 (Soila-Colace) 1 tab BID PO 12/22/16 09:00 12/24/16 09:56 (Milk Of Magnesia Liq) 30 ml Q12H PRN PO 12/22/16 00:30 (Senokot) 17.2 mg Q12H PRN PO 12/22/16 00:30 (Dulcolax Supp) 10 mg DAILY PRN RECTAL 12/22/16 00:30 (Lactulose Liq) 30 ml DAILY PRN PO 12/22/16 00:30 (Ativan Inj) 1 mg Q4H PRN IV PUSH 12/22/16 00:30 12/25/16 20:43 (Pill Splitter) 1 ea UNSCH PRN OTHER 12/24/16 19:30 Levofloxacin 500 mg 500 mg DAILY PO 12/26/16 09:00 (Vancomycin Inj/ NS 500 ml Inj) 515 ml @ 250 mls/hr Q12H IV 12/26/16 06:00 Miscellaneous Information SPECIFIC LAB TO BE DRAWN:VANCOMYCIN TROUGH DATE TO... ONCE ONCE .XX 12/28/16 05:45 12/28/16 05:46 (Dilaudid) 2 mg Q4H PRN PO 12/25/16 18:45 (Dilaudid) 4 mg Q4H PRN PO 12/25/16 17:45 12/25/16 21:29 A/P Problem List: (1) Sepsis ICD Code: A41.9 Status: Resolved Plan: improving. No further fevers. Continue Iv antibiotics blood cultures growing staph aureus, proteus mirabilis and gram negative rods Infectious disease recommendations appreciated - Cefepime discontinued and Levaquin IV started. Continue IV Vancomycin. DC IV Fluids (2) Cellulitis ICD Code: L03.90 Status: Acute Plan: Bilateral forearm cellulitis w/ open wounds, +IVDU. Symptoms ongoing since 09/2016, has Left AMA on several occasions. Continue w/ IV Abx, Wound Management. (3) IVDU (intravenous drug user) ICD Code: F19.90 Status: Acute Plan: w/ Dilaudid, ongoing, last use on day of admission. Ativan prn for withdrawal/agitation. Patient with oral dilaudid - I michael increase dose of oral Dilaudid. (4) Tobacco abuse ICD Code: Z72.0 Status: Acute Plan: Pt counselled. Continue Nicotine Patch. Assessment and Plan DVT Prophylaxis: SCD/Teds. Discharge Planning Pending ID consult Problem Qualifiers (1) Sepsis: Qualified Code: A41.9 - Sepsis, due to unspecified organism Brayden Garcia MD Dec 25, 2016 14:10
[2016-12-25 15:44] LABS: HEMATOCRIT 32.8 % (39.0-51.0); MEAN CELL VOLUME 70.5 FL (80.0-100.0); MEAN CORPUSCULAR HEMOGLOBIN 22.6 PG (27.0-34.0); PLATELET COUNT 315 TH/MM3 (150-450); RED BLOOD COUNT 4.65 MIL/MM3 (4.50-5.90); RED CELL DISTRIBUTION WIDTH 19.2 % (11.6-17.2); REVIEW FLAG FINAL; WHITE BLOOD COUNT 11.8 TH/MM3 (4.0-11.0)
[2016-12-25] MEDS ORDERED: PHARMACY ORDERED LAB ONE (15:45)
[2016-12-25 16:16] LABS: ANION GAP 7 MEQ/L (5-15); BICARBONATE 26.7 MEQ/L (21.0-32.0); BLOOD UREA NITROGEN 6 MG/DL (7-18); CHLORIDE 106 MEQ/L (98-107); GLOMERULAR FILTRATION RATE 136 ML/MIN (>89); SODIUM (NA) 140 MEQ/L (136-145)
[2016-12-25 16:20] LABS: FERRITIN 56 NG/ML (26-388); TRANSFERRIN IRON PROFILE 256 MG/DL (200-360)
[2016-12-25] MEDS: HYDROmorphone HCL 4 MG TAB PO PRN ×2 (17:47→21:29)
[2016-12-25] MEDS ORDERED: HYDROmorphone HCL 2 MG TAB PO PRN (18:45)
[2016-12-26] MEDS: LORazepam 2 MG/ML VIAL IV PUSH PRN ×5 (00:07→17:01)
[2016-12-26 00:24] VITALS: BP 116/56; PULSE 85; RESP 20; TEMP 98.5; O2SAT 100
[2016-12-26] MEDS: HYDROmorphone HCL 4 MG TAB PO PRN ×5 (01:49→17:01)
[2016-12-26 04:00] VITALS: BP 102/50; PULSE 73; RESP 20; TEMP 98; O2SAT 99
[2016-12-26] MEDS: VANCOMYCIN INJ 1,500 MG in SODIUM CHLORID 0.9% 500 ML INJ 500 ML IV SCH ×2 (04:50→17:01)
[2016-12-26 08:00] VITALS: BP 106/51; PULSE 75; RESP 18; TEMP 98.8; O2SAT 99
[2016-12-26] MEDS: DOCUSATE SODIUM 50 MG/SENNA 8.6 MG TAB PO SCH (08:55)
[2016-12-26] MEDS: SODIUM CHLORIDE 0.9% FLUSH 10 ML FLUSH IV FLUSH SCH (08:55)
[2016-12-26] MEDS ORDERED: LEVOFLOXACIN 500 MG TAB PO SCH (09:00)
[2016-12-26] MEDS: SODIUM CHLORIDE 0.9% FLUSH 10 ML FLUSH IV FLUSH PRN ×3 (09:18→17:02)
[2016-12-26 12:19] VITALS: BP 101/57; PULSE 87; RESP 18; TEMP 98.3; O2SAT 98
[2016-12-26 13:33] VITALS: PULSE 75
[2016-12-26 16:20] VITALS: BP 105/56; PULSE 88; RESP 19; TEMP 98.6; O2SAT 100
--- NOTE | 2016-12-26 16:36 | HHI.PR ---
Subjective Remarks pain controlled denies cp/sob denies diarrhea denies fevers or chills Objective Vitals Vital Signs Date Time Temp Pulse Resp B/P Pulse Ox O2 Delivery O2 Flow Rate FiO2 12/26/16 16:20 98.6 88 19 105/56 100 12/26/16 13:33 75 12/26/16 12:19 98.3 87 18 101/57 98 12/26/16 08:00 98.8 75 18 106/51 99 12/26/16 04:00 98.0 73 20 102/50 99 12/26/16 00:24 98.5 85 20 116/56 100 12/25/16 20:00 99.3 93 20 131/70 99 I/O 12/25/16 12/25/16 12/25/16 12/26/16 12/26/16 12/26/16 06:59 14:59 22:59 06:59 14:59 22:59 Intake Total 960 ml Balance 960 ml Intake Oral 960 ml # Voids 3 4 2 1 # Bowel Movements 1 2 0 Result Diagram: 12/25/16 1440 12/25/16 1440 Objective Remarks GENERAL: Young male in no acute distress. HEENT: PERRLA, EOMI. No scleral icterus or conjunctival pallor. No lid lag or facial droop. CARDIOVASCULAR: Regular rate and rhythm. No obvious murmurs to auscultation. No chest tenderness to palpation. RESPIRATORY: No obvious rhonchi or wheezing. Clear to auscultation. Breath sounds equal bilaterally. GASTROINTESTINAL: Abdomen soft, non-tender, nondistended. BS normal. MUSCULOSKELETAL: Extremities without clubbing, cyanosis, or edema. No obvious deformities. Open wounds to bilateral forearms, +purulent drainage. NEUROLOGICAL: Awake, alert and oriented x4. No focal neurologic deficits. Moving both upper and lower extremities spontaneously. Procedures none Medications and IVs Current Medications Medications (Trade) Dose Ordered Sig/Jess Route Start Time Stop Time Status Last Admin (Vancomycin Consult Pharmacy) 0 ml @ 0 mls/hr UNSCH OTHER 12/22/16 00:30 (NS Flush) 2 ml UNSCH PRN IV FLUSH 12/22/16 00:30 12/26/16 13:26 (NS Flush) 2 ml BID IV FLUSH 12/22/16 09:00 12/25/16 21:30 (Zofran Inj) 4 mg Q6H PRN IVP 12/22/16 00:30 (Tylenol) 650 mg Q6H PRN PO 12/22/16 00:30 (Soila-Colace) 1 tab BID PO 12/22/16 09:00 12/24/16 09:56 (Milk Of Magnesia Liq) 30 ml Q12H PRN PO 12/22/16 00:30 (Senokot) 17.2 mg Q12H PRN PO 12/22/16 00:30 (Dulcolax Supp) 10 mg DAILY PRN RECTAL 12/22/16 00:30 (Lactulose Liq) 30 ml DAILY PRN PO 12/22/16 00:30 (Ativan Inj) 1 mg Q4H PRN IV PUSH 12/22/16 00:30 12/26/16 13:26 (Pill Splitter) 1 ea UNSCH PRN OTHER 12/24/16 19:30 Levofloxacin 500 mg 500 mg DAILY PO 12/26/16 09:00 12/26/16 08:54 (Vancomycin Inj/ NS 500 ml Inj) 515 ml @ 250 mls/hr Q12H IV 12/26/16 06:00 12/26/16 04:50 Miscellaneous Information SPECIFIC LAB TO BE DRAWN:VANCOMYCIN TROUGH DATE TO... ONCE ONCE .XX 12/28/16 05:45 12/28/16 05:46 (Dilaudid) 2 mg Q4H PRN PO 12/25/16 18:45 (Dilaudid) 4 mg Q4H PRN PO 12/25/16 17:45 12/26/16 13:26 A/P Problem List: (1) Sepsis ICD Code: A41.9 Status: Resolved Plan: improving. No further fevers. Continue Iv antibiotics blood cultures growing staph aureus, proteus mirabilis and gram negative rods Infectious disease recommendations appreciated - Cefepime discontinued and Levaquin IV started. Continue IV Vancomycin. DC IV Fluids (2) Cellulitis ICD Code: L03.90 Status: Acute Plan: Bilateral forearm cellulitis w/ open wounds, +IVDU. Symptoms ongoing since 09/2016, has Left AMA on several occasions. Continue w/ IV Abx, Wound Management. (3) IVDU (intravenous drug user) ICD Code: F19.90 Status: Acute Plan: w/ Dilaudid, ongoing, last use on day of admission. Ativan prn for withdrawal/agitation. (4) Tobacco abuse ICD Code: Z72.0 Status: Acute Plan: Pt counselled. Continue Nicotine Patch. Assessment and Plan DVT Prophylaxis: SCD/Teds. Discharge Planning Pending ID consult Problem Qualifiers (1) Sepsis: Qualified Code: A41.9 - Sepsis, due to unspecified organism Brayden Garcia MD Dec 26, 2016 16:36
--- NOTE | 2016-12-26 16:50 | HHI.IDPN ---
Subjective Subjective Remarks is a 31 y/o CM with PMH of Hepatitis C, Tobacco Abuse and IVDU who presented to the ER with complaints of bilateral upper extremity lesions. Symptoms have been ongoing for approx 3 months, seen in ER on multiple occasions for same, initially presented on 09/30/16 however Left AMA at that time. Presented again on 12/09/16 and Left AMA once again. On arrival, BP 141/71 , HR 106, O2 sat on her percent on RA, Temp 102.1. WBC 15.4. Chemistry essentially unremarkable. Lactic Acid 2.0. INR 1.0. Pt admits to ongoing IVDU w/ Dilaudid, last use on day of admission. Denies any prior endocarditis or epidural abscess. Denies any fever, chills, and night sweats. Denies any other systemic symptoms. ID consulted for evaluation and Mment of Bilateral UE cellulitis. Overnight events reviewed. No fevers No rash no diarrhea seen by wound care and podiatry and will be sent to wound care clinic as outpt. Antibiotics Vanco IV Lines Line sites with no e/o infection. Past Medical History reviewed Allergies: Coded Allergies: No Known Allergies (Verified , 12/21/16) Objective . Vital Signs Date Time Temp Pulse Resp B/P Pulse Ox O2 Delivery O2 Flow Rate FiO2 12/26/16 16:20 98.6 88 19 105/56 100 12/26/16 13:33 75 12/26/16 12:19 98.3 87 18 101/57 98 12/26/16 08:00 98.8 75 18 106/51 99 12/26/16 04:00 98.0 73 20 102/50 99 12/26/16 00:24 98.5 85 20 116/56 100 12/25/16 20:00 99.3 93 20 131/70 99 12/25/16 12/25/16 12/26/16 14:59 22:59 06:59 Intake Total 960 ml Balance 960 ml Intake Oral 960 ml # Voids 4 2 # Bowel Movements 1 2 0 . Laboratory Tests Test 12/24/16 12/25/16 16:53 14:40 White Blood Count 9.4 TH/MM3 11.8 TH/MM3 Red Blood Count 4.65 MIL/MM3 4.65 MIL/MM3 Hemoglobin 10.9 GM/DL 10.5 GM/DL Hematocrit 33.2 % 32.8 % Mean Corpuscular Volume 71.4 FL 70.5 FL Mean Corpuscular Hemoglobin 23.3 PG 22.6 PG Mean Corpuscular Hemoglobin 32.7 % 32.0 % Concent Red Cell Distribution Width 19.6 % 19.2 % Platelet Count 279 TH/MM3 315 TH/MM3 Mean Platelet Volume 8.9 FL 8.7 FL Neutrophils (%) (Auto) 54.3 % Lymphocytes (%) (Auto) 35.1 % Monocytes (%) (Auto) 7.1 % Eosinophils (%) (Auto) 2.2 % Basophils (%) (Auto) 1.3 % Neutrophils # (Auto) 5.1 TH/MM3 Lymphocytes # (Auto) 3.3 TH/MM3 Monocytes # (Auto) 0.7 TH/MM3 Eosinophils # (Auto) 0.2 TH/MM3 Basophils # (Auto) 0.1 TH/MM3 CBC Comment DIFF FINAL Differential Comment Laboratory Tests Test 12/24/16 12/25/16 16:53 14:40 Sodium Level 141 MEQ/L 140 MEQ/L Potassium Level 3.9 MEQ/L 4.0 MEQ/L Chloride Level 107 MEQ/L 106 MEQ/L Carbon Dioxide Level 25.8 MEQ/L 26.7 MEQ/L Anion Gap 8 MEQ/L 7 MEQ/L Blood Urea Nitrogen 6 MG/DL 6 MG/DL Creatinine 0.69 MG/DL 0.69 MG/DL Estimat Glomerular Filtration 136 ML/MIN 136 ML/MIN Rate Random Glucose 113 MG/DL 92 MG/DL Calcium Level 8.4 MG/DL 8.7 MG/DL Phosphorus Level 2.6 MG/DL Magnesium Level 2.0 MG/DL Total Bilirubin 0.1 MG/DL Aspartate Amino Transf 30 U/L (AST/SGOT) Alanine Aminotransferase 33 U/L (ALT/SGPT) Alkaline Phosphatase 92 U/L Total Protein 7.1 GM/DL Albumin 2.6 GM/DL Iron Level 33 MCG/DL Total Iron Binding Capacity 358 MCG/DL Percent Iron Saturation 9.2 % Ferritin 56 NG/ML Physical Exam GENERAL: This is a well-nourished, well-developed patient, in no apparent distress. SKIN: No rashes, ecchymoses or lesions. Cool and dry. HEAD: Atraumatic. Normocephalic. No temporal or scalp tenderness. EYES: Pupils equal round and reactive. Extraocular motions intact. No scleral icterus. No injection or drainage. ENT: Nose without bleeding, purulent drainage or septal hematoma. Throat without erythema, tonsillar hypertrophy or exudate. Uvula midline. Airway patent. NECK: Trachea midline. No JVD or lymphadenopathy. Supple, nontender, no meningeal signs. CARDIOVASCULAR: Regular rate and rhythm without murmurs, gallops, or rubs. RESPIRATORY: Clear to auscultation. Breath sounds equal bilaterally. No wheezes , rales, or rhonchi. GASTROINTESTINAL: Abdomen soft, non-tender, nondistended. No hepato-splenomegaly , or palpable masses. No guarding. MUSCULOSKELETAL: Bilateral UE with oozing noted and ulcerations with surrounding erythema and induration. NEUROLOGICAL: Awake and alert. Cranial nerves II through XII intact. Motor and sensory grossly within normal limits. Five out of 5 muscle strength in all muscle groups. Normal speech. Psych: cooperative IV line sites with no e.o infection. Assessment & Plan Remarks Bilateral UE cellulitis MSSA, Proteus and Strep in wound cultures H/o transient MSSA bacteremia last visit to [facility] in early December. Repeat BCX negative so far. IVDA Hep C history Recs: Continue Vanco IV (target 10-15) for cellulitis. Continue Levaquin for Gram negatives in cultures Proteus. Follow cultures Follow clinically. D/w CM: Discharge patient home after one dose of Dalvance and Levaquin oral for 2 weeks. Dalvance patient assistance form completed, paper order placed, dw case management, RN, Pharmacist. Dalvance form to be faxed by Case management and discharge once dose of Dalvance administered. Will sign off please call back if any change in clinical condition, questions or issues with Dalvance order. Maggy Dixon MD Dec 26, 2016 4:50 pm
[2016-12-26] MEDS ORDERED: LEVA500T20 PO (16:58)
[2016-12-27] MEDS ORDERED: DALBAVANCIN INJ 1,500 MG in DEXTROSE 5% IN WATE 500 ML INJ 500 ML IV ONE ×2 (10:00)
[2016-12-28] MEDS ORDERED: PHARMACY ORDERED LAB ONE (05:45)
== END 2016-12-26 18:26 | disposition left against medical advice (07) | DRG 872 ==
LOC: NEPC 21:32 → NEDA 12-22 00:16 → N05B 12-22 03:45
PROVIDERS: ADMIT Hospitalist; ATTEND Hospitalist
DX: A41.9 Sepsis, unspecified organism (principal); F11.10 Opioid abuse, uncomplicated; L03.113 Cellulitis of right upper limb; L03.114 Cellulitis of left upper limb; B19.20 Unspecified viral hepatitis C without hepatic coma; F17.210 Nicotine dependence, cigarettes, uncomplicated; B95.61 Methicillin susceptible Staphylococcus aureus infection as the cause of diseases classified elsewhere; B96.4 Proteus (mirabilis) (morganii) as the cause of diseases classified elsewhere
CPT/HCPCS: 76937; 80048; 80053; 80202; 82728; 83540; 83550; 83605; 83735; 84100; 85025; 85027; 85610; 85652; 85730; 86140; 86403; 87040; 87070; 87077; 87147; 87186; 87205; 96374; 96375; J0692; J1885; J2060; J2270; J2543; J3370; J7030; J7040; J7050

== ENCOUNTER 2017-01-05 19:37 | Observation (INO) | payer SELFPAY ==
[~2017-01-05] VITALS: Ht 185.4 cm; Wt 84.0 kg
[~2017-01-05 19:37] MED LIST changes: -BACT800T5 PO; -CLIN1CAP5 PO; +LEVA500T20 PO
[2017-01-05 19:40] VITALS: BP 124/65; PULSE 100; RESP 16; TEMP 100.3
--- NOTE | 2017-01-05 20:37 | PD ---
HPI . b/l arm wounds Chief Complaint: Laceration/Skin Injury Time Seen by Provider: 20:29 Travel History International Travel<30 days: No Contact w/Intl Traveler<30days: No Traveled to known affect area: No History of Present Illness HPI 31-year-old male with bilateral wounds to the dorsum of his hands that has been present for several months here requesting a letter granting permission to travel on an airplane to [facility]. Apparently patient's family lives in [facility] and he is trying to get there for moral support and further medical care. Patient was recently discharged from the hospital after receiving a dose of Dalvance and was told to fill Levaquin as he had bacteremia. There was some mixup and patient was unable to get the Levaquin filled. He is now here requesting this letter, but is tachycardic and has a slight temperature. He reports that his wounds seem to improved. He denies any fever or chills. He is not actually checked his temperature. He does have history of IV Dilaudid usage, but tells me that he has not injected into his arms. He reports taking 8 mg of Dilaudid 8 times a day to control his pain. [facility] Past Medical History Cardiovascular Problems: No Diminished Hearing: No Endocrine: No Genitourinary: No Hepatitis: Yes (hep c) Immune Disorder: No Musculoskeletal: Yes Neurologic: No Reproductive: No Respiratory: No Social History Alcohol Use: No Tobacco Use: Yes (1/2 ppd) Substance Use: Yes (IV dilaudid and marijuana) Allergies-Medications (Allergen,Severity, Reaction): Coded Allergies: No Known Allergies (Verified , 12/21/16) Reported Meds & Prescriptions Reported Meds & Active Scripts Active No Active Prescriptions or Reported Medications Review of Systems General / Constitutional: No: Fever Eyes: No: Visual changes HENT: No: Headaches Cardiovascular: No: Chest Pain or Discomfort Respiratory: No: Shortness of Breath Gastrointestinal: No: Abdominal Pain Genitourinary: No: Dysuria Musculoskeletal: No: Pain Skin: Positive Other (b/l arm wounds), No Rash Neurologic: No: Weakness Psychiatric: No: Depression Endocrine: No: Polydipsia Hematologic/Lymphatic: No: Easy Bruising Physical Exam Narrative GENERAL: AAO x 3, appears slightly lethargic, but answers all questions appropriately, disheveled appearance SKIN: Warm and dry. Bilateral arms; dorsum with large wounds, with some purulent matter visible, no significant erythema, but there is edema R>L HEAD: Normocephalic and atraumatic. EYES: No scleral icterus. No injection or drainage. EOM intact, ENT: No nasal drainage noted. Mucous membranes pink. Airway patent. NECK: Supple, trachea midline. No JVD. CARDIOVASCULAR: Regular rate and rhythm without murmurs, gallops, or rubs. RESPIRATORY: Breath sounds equal bilaterally. No accessory muscle use. No rhonchi or rales. GASTROINTESTINAL: Abdomen soft, non-tender, nondistended. EXTREMITIES: No cyanosis or edema. BACK: No obvious deformity. No CVA tenderness. NEURO: CN II-12 intact, distribution sales manager strength normal b/l, UE and LE 5/5, no focal deficits PSYCH: AAO x 3, flat affect Data Data Last Documented VS Vital Signs Date Time Temp Pulse Resp B/P Pulse Ox O2 Delivery O2 Flow Rate FiO2 01/05/17 22:00 98 16 140/68 100 Room Air 01/05/17 19:40 100.3 Orders Electrocardiogram (01/05/17 20:40) Complete Blood Count With Diff (01/05/17 20:40) Comprehensive Metabolic Panel (01/05/17 20:40) Lactic Acid Sepsis Protocol (01/05/17 20:40) Urinalysis - C+S If Indicated (01/05/17 20:40) Blood Culture (01/05/17 20:40) Wound Culture And Gram Stain (01/05/17 20:40) Chest, Single Ap (01/05/17 20:40) Blood Glucose (01/05/17 20:40) Ecg Monitoring (01/05/17 20:40) Iv Access Insert/Monitor (01/05/17 20:40) Oximetry (01/05/17 20:40) Oxygen Administration (01/05/17 20:40) Consult Infectious Disease (01/05/17 ) Piperacil-Tazo 4.5 Gm Premix (Zosyn 4.5 (01/05/17 21:00) Vancomycin Inj (Vancomycin Inj) (01/05/17 21:00) (Hub Use Only)Inp Phy Cons/Ref (01/05/17 ) Admit Order (Ed Use Only) (01/05/17 22:49) Labs Laboratory Tests Test 01/05/17 21:30 White Blood Count 11.7 TH/MM3 Red Blood Count 4.46 MIL/MM3 Hemoglobin 10.1 GM/DL Hematocrit 31.5 % Mean Corpuscular Volume 70.6 FL Mean Corpuscular Hemoglobin 22.6 PG Mean Corpuscular Hemoglobin 32.1 % Concent Red Cell Distribution Width 19.2 % Platelet Count 233 TH/MM3 Mean Platelet Volume 8.5 FL Neutrophils (%) (Auto) 54.1 % Lymphocytes (%) (Auto) 28.2 % Monocytes (%) (Auto) 13.4 % Eosinophils (%) (Auto) 3.6 % Basophils (%) (Auto) 0.7 % Neutrophils # (Auto) 6.3 TH/MM3 Lymphocytes # (Auto) 3.3 TH/MM3 Monocytes # (Auto) 1.6 TH/MM3 Eosinophils # (Auto) 0.4 TH/MM3 Basophils # (Auto) 0.1 TH/MM3 CBC Comment DIFF FINAL Differential Comment Sodium Level 137 MEQ/L Potassium Level 3.7 MEQ/L Chloride Level 102 MEQ/L Carbon Dioxide Level 28.2 MEQ/L Anion Gap 7 MEQ/L Blood Urea Nitrogen 9 MG/DL Creatinine 0.94 MG/DL Estimat Glomerular Filtration 95 ML/MIN Rate Random Glucose 84 MG/DL Lactic Acid Level 1.0 mmol/L Calcium Level 8.1 MG/DL Total Bilirubin 0.3 MG/DL Aspartate Amino Transf 29 U/L (AST/SGOT) Alanine Aminotransferase 27 U/L (ALT/SGPT) Alkaline Phosphatase 114 U/L Total Protein 7.3 GM/DL Albumin 3.0 GM/DL [facility] Medical Decision Making Medical Screen Exam Complete: Yes Emergency Medical Condition: Yes Medical Record Reviewed: Yes Differential Diagnosis infected wounds of the arms, sepsis, necrotizing fasciitis, Narrative Course 31 yr old male here with infected arm wounds. He had some difficulty obtaining antibiotics after being discharged. He is slightly febrile and tachycardic. Sepsis workup initiated. Patient will be admitted for further workup and treatment. Dr. Ortiz has also seen the patient. Case discussed with her. We have provided Zosyn and Vanco here in the ED. Last Impressions Chest X-Ray 01/05/172039 Signed Impressions: Service Date/Time: Thursday, January 05, 2017 20:45 - CONCLUSION: No acute disease. Adrien Mcknight MD Laboratory Tests Test 01/05/17 21:30 White Blood Count 11.7 TH/MM3 Red Blood Count 4.46 MIL/MM3 Hemoglobin 10.1 GM/DL Hematocrit 31.5 % Mean Corpuscular Volume 70.6 FL Mean Corpuscular Hemoglobin 22.6 PG Mean Corpuscular Hemoglobin 32.1 % Concent Red Cell Distribution Width 19.2 % Platelet Count 233 TH/MM3 Mean Platelet Volume 8.5 FL Neutrophils (%) (Auto) 54.1 % Lymphocytes (%) (Auto) 28.2 % Monocytes (%) (Auto) 13.4 % Eosinophils (%) (Auto) 3.6 % Basophils (%) (Auto) 0.7 % Neutrophils # (Auto) 6.3 TH/MM3 Lymphocytes # (Auto) 3.3 TH/MM3 Monocytes # (Auto) 1.6 TH/MM3 Eosinophils # (Auto) 0.4 TH/MM3 Basophils # (Auto) 0.1 TH/MM3 CBC Comment DIFF FINAL Differential Comment Sodium Level 137 MEQ/L Potassium Level 3.7 MEQ/L Chloride Level 102 MEQ/L Carbon Dioxide Level 28.2 MEQ/L Anion Gap 7 MEQ/L Blood Urea Nitrogen 9 MG/DL Creatinine 0.94 MG/DL Estimat Glomerular Filtration 95 ML/MIN Rate Random Glucose 84 MG/DL Lactic Acid Level 1.0 mmol/L Calcium Level 8.1 MG/DL Total Bilirubin 0.3 MG/DL Aspartate Amino Transf 29 U/L (AST/SGOT) Alanine Aminotransferase 27 U/L (ALT/SGPT) Alkaline Phosphatase 114 U/L Total Protein 7.3 GM/DL Albumin 3.0 GM/DL Labs reviewed and appreciated. Imaging appreciated. Recommend admission for IV antibiotics. Patient may benefit from seeing case management to help him make arrangements to get the letter to travel. 2251: Discussed with Dr. Beard. Recommend admission for infected arm wounds. Discussed admission with patient and he was accepting. Diagnosis Primary Impression: Cellulitis Qualified Code: L03.119 - Cellulitis of upper extremity, unspecified laterality Admitting Information Admitting Physician Requests: Admit Scripts No Active Prescriptions or Reported Meds Condition: Stable Kirstin Jacob Jan 05, 2017 20:37
--- NOTE | 2017-01-05 20:48 | PD ---
Data Data Last Documented VS Vital Signs Date Time Temp Pulse Resp B/P Pulse Ox O2 Delivery O2 Flow Rate FiO2 01/05/17 19:40 100.3 100 16 124/65 Room Air Orders Electrocardiogram (01/05/17 20:40) Complete Blood Count With Diff (01/05/17 20:40) Comprehensive Metabolic Panel (01/05/17 20:40) Lactic Acid Sepsis Protocol (01/05/17 20:40) Urinalysis - C+S If Indicated (01/05/17 20:40) Blood Culture (01/05/17 20:40) Wound Culture And Gram Stain (01/05/17 20:40) Chest, Single Ap (01/05/17 20:40) Blood Glucose (01/05/17 20:40) Ecg Monitoring (01/05/17 20:40) Iv Access Insert/Monitor (01/05/17 20:40) Oximetry (01/05/17 20:40) Oxygen Administration (01/05/17 20:40) MDM Supervised Visit with EDEL: Yes Narrative Course I, Dr. Ortiz, have reviewed the advance practice practioner's documentation and am in agreement, met with the patient face to face, made the diagnosis, and the medical decision making was done by me. *My assessment and Findings: Patient is a 31-year-old male with history of Dilaudid IV drug use using 8 mg 8 times daily. He is here because he essentially one-to-one notes that he can fly to [place] for patient once moved to live. He was recently admitted for bacteremia and discharged to home with antibiotics that he has not been able to fill. He continues to inject. He has open bloody and purulent draining wounds on the dorsum of the arms bilaterally. Patient states "I'm not that stupid to be injecting into my wounds". He does not have any other open areas, wounds or drainage. Patient is tachycardic and has low-grade fever here highly concerning for sepsis. I certainly do not feel comfortable writing patient a note to fly internationally. And instead he needs sepsis workup, antibiotics and repeat admission. Patient was agreeable to this. Sepsis Criteria SIRS Criteria (2 or more): Heart rate over 90 Scripts No Active Prescriptions or Reported Meds [place] Ortiz MD Jan 05, 2017 20:48
[2017-01-05] MEDS ORDERED: PIPERACIL-TAZO 4.5 GM PREMIX 100 ML IV ONE (21:00)
[2017-01-05] MEDS ORDERED: VANCOMYCIN INJ 1,750 MG in SODIUM CHLORID 0.9% 500 ML INJ 500 ML IV ONE (21:00)
--- NOTE | 2017-01-05 21:15 | RADRPT ---
EXAM DATE/TIME: 01/05/2017 20:45 [facility] COMPARISON: No previous studies available for comparison. INDICATIONS : Infection in arms. Fever. No chest complaint. MEDICAL HISTORY : Hepatitis C. SURGICAL HISTORY : None. ENCOUNTER: Initial ACUITY: 3 months PAIN SCORE: 0/10 LOCATION: Bilateral chest FINDINGS: A single view of the chest demonstrates the lungs to be symmetrically aerated without evidence of mas s, infiltrate or effusion. The cardiomediastinal contours are unremarkable. Osseous structures are intact. CONCLUSION: No acute disease. Adrien Mcknight MD on January 05, 2017 at 21:13 Board Certified Radiologist. This report was verified electronically.
[2017-01-05 21:58] LABS: AUTOMATED NEUTROPHIL # 6.3 TH/MM3 (1.8-7.7); BASOPHIL # 0.1 TH/MM3 (0-0.2); BASOPHIL % 0.7 % (0.0-2.0); EOSINOPHIL # 0.4 TH/MM3 (0-0.4); EOSINOPHIL % 3.6 % (0.0-4.0); HEMATOCRIT 31.5 % (39.0-51.0); HEMO FLAGS DIFF FINAL; LYMPH % 28.2 % (9.0-44.0); LYMPHOCYTE # 3.3 TH/MM3 (1.0-4.8); MEAN CELL VOLUME 70.6 FL (80.0-100.0); MEAN CORPUSCULAR HEMOGLOBIN 22.6 PG (27.0-34.0); MEAN CORPUSCULAR HGB CONC 32.1 % (32.0-36.0); MONO % 13.4 % (0.0-8.0); NEUT % 54.1 % (16.0-70.0); PLATELET COUNT 233 TH/MM3 (150-450); RED BLOOD COUNT 4.46 MIL/MM3 (4.50-5.90); RED CELL DISTRIBUTION WIDTH 19.2 % (11.6-17.2); WHITE BLOOD COUNT 11.7 TH/MM3 (4.0-11.0)
[2017-01-05 22:00] VITALS: BP 140/68; PULSE 98; RESP 16; O2SAT 100
[2017-01-05 22:22] LABS: ALT (GPT) 27 U/L (12-78); ANION GAP 7 MEQ/L (5-15); AST (GOT) 29 U/L (15-37); BICARBONATE 28.2 MEQ/L (21.0-32.0); BLOOD UREA NITROGEN 9 MG/DL (7-18); CHLORIDE 102 MEQ/L (98-107); GLOMERULAR FILTRATION RATE 95 ML/MIN (>89); POTASSIUM 3.7 MEQ/L (3.5-5.1); SODIUM (NA) 137 MEQ/L (136-145)
[2017-01-05 22:25] LABS: ALKALINE PHOSPHATASE 114 U/L (45-117); TOTAL BILIRUBIN ADULT 0.3 MG/DL (0.2-1.0)
[2017-01-05 23:11] VITALS: BP 130/62; PULSE 94; RESP 14; O2SAT 99
--- NOTE | 2017-01-05 23:11 | HHI.HP ---
[facility] No Primary Care Physician Admission Diagnosis infected arm wounds Diagnoses: (1) Cellulitis Diagnosis: Principal (2) Non-compliance Diagnosis: Principal (3) Tobacco abuse Diagnosis: Principal (4) IVDU (intravenous drug user) Diagnosis: Principal Travel History International Travel<30 Days: No Contact w/Intl Traveler <30 Da: No Traveled to Known Affected Are: No History of Present Illness This is a 31-year-old male with PMH of IVDU w/ Dilaudid, Tobacco Abuse and Bilateral UE Cellulitis who presented to the ER to obtain letter for Airline. Pt w/ previous admissions for UE Cellulitis, has LEFT AMA on multiple occasions , most recent admit 12/22/16 for same, s/p eval by ID, given Dalvance w/ plan to d/c on Levaquin PO x2 wks. LEFT AMA again on 12/26/16, however given a prescription for Levaquin, however states unable to get script filled. States he attempted to fly to [facility] where his family is, however was told by airline that he needs a letter from physician granting permission to fly due to extent of cellulitis. Denies recent injection to arms. On arrival, BP 124/65, HR 100 , O2 sat on her percent on RA, Temp 100.3. Repeat temp 98.7. WBC 11.7, previously 1.8 on 12/25/16. Chemistry unremarkable. CXR with no acute findings. S/p Blood Cultures, Vanc/Zosyn in ER. ID consult placed by ER physician. Review of Systems Except as stated in HPI: all other systems reviewed are Neg ROS: 14 point review of systems otherwise negative. Past Family Social History Past Medical History PMH: IVDU w/ Dilaudid, Tobacco Abuse and Bilateral UE Cellulitis Past Surgical History PAST SURGICAL HISTORY: None Allergies: Coded Allergies: No Known Allergies (Verified , 12/21/16) Family History PAST FAMILY HISTORY: Reviewed. No h/o DM or CAD Social History PAST SOCIAL HISTORY: Negative for alcohol. Smokes 1/2ppd. +IVDU w/ Dilaudid, +Marijuana. Physical Exam Vital Signs Vital Signs Date Time Temp Pulse Resp B/P Pulse Ox O2 Delivery O2 Flow Rate FiO2 01/05/17 19:40 100.3 100 16 124/65 Room Air Physical Exam PE: GENERAL: Young male in no acute distress. HEENT: PERRLA, EOMI. No scleral icterus or conjunctival pallor. No lid lag or facial droop. CARDIOVASCULAR: Regular rate and rhythm. No obvious murmurs to auscultation. No chest tenderness to palpation. RESPIRATORY: No obvious rhonchi or wheezing. Clear to auscultation. Breath sounds equal bilaterally. GASTROINTESTINAL: Abdomen soft, non-tender, nondistended. BS normal. MUSCULOSKELETAL: Extremities without clubbing, cyanosis, or edema. No obvious deformities. Bilateral upper extremities w/ multiple wounds, +purulent drainage. NEUROLOGICAL: Awake, alert and oriented x4. No focal neurologic deficits. Moving both upper and lower extremities spontaneously. Laboratory Laboratory Tests Test 01/05/17 21:30 White Blood Count 11.7 Red Blood Count 4.46 Hemoglobin 10.1 Hematocrit 31.5 Mean Corpuscular Volume 70.6 Mean Corpuscular Hemoglobin 22.6 Mean Corpuscular Hemoglobin 32.1 Concent Red Cell Distribution Width 19.2 Platelet Count 233 Mean Platelet Volume 8.5 Neutrophils (%) (Auto) 54.1 Lymphocytes (%) (Auto) 28.2 Monocytes (%) (Auto) 13.4 Eosinophils (%) (Auto) 3.6 Basophils (%) (Auto) 0.7 Neutrophils # (Auto) 6.3 Lymphocytes # (Auto) 3.3 Monocytes # (Auto) 1.6 Eosinophils # (Auto) 0.4 Basophils # (Auto) 0.1 CBC Comment DIFF FINAL Differential Comment Sodium Level 137 Potassium Level 3.7 Chloride Level 102 Carbon Dioxide Level 28.2 Anion Gap 7 Blood Urea Nitrogen 9 Creatinine 0.94 Estimat Glomerular Filtration 95 Rate Random Glucose 84 Lactic Acid Level 1.0 Calcium Level 8.1 Total Bilirubin 0.3 Aspartate Amino Transf 29 (AST/SGOT) Alanine Aminotransferase 27 (ALT/SGPT) Alkaline Phosphatase 114 Total Protein 7.3 Albumin 3.0 Date/Time Procedure Status Source Growth 01/05/17 21:40 Aerobic Blood Culture Received Blood Peripheral Pending 01/05/17 21:40 Anaerobic Blood Culture Received Blood Peripheral Pending 01/05/17 21:30 Gram Stain Received Wound Arm Pending 01/05/17 21:30 Wound Culture Received Wound Arm Pending Result Diagram: 01/05/17212901/05/172129 Assessment and Plan Problem List: (1) Cellulitis ICD Code: L03.90 Status: Acute (2) Non-compliance ICD Code: Z91.19 Status: Acute (3) IVDU (intravenous drug user) ICD Code: F19.90 Status: Acute (4) Tobacco abuse ICD Code: Z72.0 Status: Acute Assessment and Plan A/P: 1. Cellulitis: Bilateral Upper Extremity Cellulitis, ongoing w/ multiple admissions for same. S/p admit 12/22 w/ eval by ID, s/p treatment w/ Vanc/ Levaquin IV, ultimately given Dalvance and Levaquin PO, LEFT AMA 12/26/16, however given prescriptions, however pt states unable to fill. Persistent bilateral upper extremity wound w/ +purulent drainage. S/p Wound/Blood Cultures , Vanc/Zosyn. Follow up cultures, continue IV Abx. ID consult placed by ER physician. 2. Non-Compliance: Multiple admissions for above, pt has LEFT AMA repeatedly. Demanding pain medication and threatening to LEAVE AMA at this time, states he will leave and go to in am. 3. IVDU: w/ Dilaudid. Ativan prn withdrawal/agitation. 4. Tobacco Abuse: Counselled. Ativan/NicoDerm prn if needed. 5. DVT Prophylaxis: SCD/Teds. 6. Social work for d/c planning as needed. 7. Case discussed w/ ER physician at length. Problem Qualifiers (1) Cellulitis: Qualified Code: L03.119 - Cellulitis of upper extremity, unspecified laterality Tala Beard MD Jan 05, 2017 23:11
[2017-01-05] MEDS ORDERED: ACETAMINOPHEN 325 MG TAB PO PRN (23:15)
[2017-01-05] MEDS ORDERED: Vancomycin Consult Pharmacy 1 EA OTHER SCH (23:15)
[2017-01-05] MEDS ORDERED: LACTULOSE SYRUP 20 GM/30 ML CUP PO PRN (23:15)
[2017-01-05] MEDS ORDERED: ONDANSETRON HCL 4 MG/2 ML VIAL IVP PRN (23:15)
[2017-01-05] MEDS ORDERED: MAGNESIUM HYDROXIDE SUSP 30 ML CUP PO PRN (23:15)
[2017-01-05] MEDS ORDERED: SODIUM CHLORIDE 0.9% FLUSH 10 ML FLUSH IV FLUSH PRN (23:15)
[2017-01-05] MEDS ORDERED: LEVOFLOXACIN 750 MG PREMIX INJ 150 ML IV SCH (23:15)
[2017-01-05] MEDS ORDERED: SENNOSIDES 8.6 MG TAB PO PRN (23:15)
[2017-01-05] MEDS ORDERED: BISACODYL 10 MG SUPP RECTAL PRN (23:15)
[2017-01-05 23:38] LABS: BLOOD, URINE NEG (NEG); GLUCOSE,URINE NEG (NEG); KETONE, URINE NEG (NEG); MUCUS URINE FEW /lpf (OCC); NITRITE,URINE NEG (NEG); SQUAMOUS EPITHELIAL CELL URINE <1 /hpf (0-5); URINE COLOR YELLOW (YELLW/STRAW)
[2017-01-05 23:40] LABS: COMMENT (UR) CULT NOT INDICATED; CULTURE IF INDICATED CULT NOT INDICATED
[2017-01-06 00:13] VITALS: BP 134/82; PULSE 91; RESP 20; TEMP 98.7; O2SAT 98
[2017-01-06] MEDS ORDERED: HYDROmorphone HCL PF 1 MG/ML VIAL IV PUSH ONE (00:45)
[2017-01-06] MEDS: SODIUM CHLOR 0.9% 1000 ML INJ 1,000 ML IV SCH ×2 (01:08→09:42)
[2017-01-06 04:05] VITALS: BP 133/94; PULSE 86; RESP 20; TEMP 100.4; O2SAT 100
[2017-01-06 07:15] VITALS: BP 113/59; PULSE 65; RESP 15; TEMP 98.8; O2SAT 96
[2017-01-06] MEDS ORDERED: DOCUSATE SODIUM 50 MG/SENNA 8.6 MG TAB PO SCH (09:00)
[2017-01-06] MEDS ORDERED: SODIUM CHLORIDE 0.9% FLUSH 10 ML FLUSH IV FLUSH SCH (09:00)
[2017-01-06] MEDS ORDERED: VANCOMYCIN INJ 1,750 MG in SODIUM CHLORID 0.9% 500 ML INJ 500 ML IV SCH (10:00)
[2017-01-06] MEDS ORDERED: oxyCODONE/ACETAMINOPHEN 10 MG/325 MG TAB PO PRN (10:30)
[2017-01-06] MEDS ORDERED: oxyCODONE/ACETAMINOPHEN 5 MG/325 MG TAB PO PRN (10:30)
--- NOTE | 2017-01-06 16:06 | PD.AMA ---
Against Medical Advice Note Discharge Disposition: Against Medical Advice Pt Condition on Discharge: Fair AMA Statement Patient Rikki Larkin has decided to leave the hospital against medical advice. This patient has the capacity to refuse care and understands the risks of leaving, including permanent disability and/or , and has had an opportunity to ask questions about his condition. The patient has been informed that he may return for care at any time, and follow up has been advised. Prior to the patient being seen this morning, he left AMA around 10:30am. Per RN, patient was AAOx4. Arleen Baker PA-C Jan 06, 2017 4:06 pm
--- NOTE | 2017-01-06 17:13 | EKG ---
Date Performed: 01/05/2017 Time Performed: 21:32:57 PTAGE: 31 years EKG: Sinus rhythm WITH SHORT WY INTERVAL INCOMPLETE RIGHT BUNDLE BRANCH BLOCK BORDERLINE ECG NO PREVIOUS TRACING DOCTOR: Kari Sequeira Interpretating Date/Time 01/06/2017 17:10:11
[2017-01-07] MEDS ORDERED: PHARMACY ORDERED LAB ONE (09:45)
== END 2017-01-06 11:18 | disposition left against medical advice (07) ==
LOC: NEPE 19:37 → NEDA 22:52 → NEPHCDU 01-06 00:05
PROVIDERS: ADMIT Hospitalist; ATTEND Hospitalist
DX: L03.114 Cellulitis of left upper limb (principal); L03.113 Cellulitis of right upper limb; R00.0 Tachycardia, unspecified; R50.9 Fever, unspecified; Z91.19 Patient's noncompliance with other medical treatment and regimen; B19.20 Unspecified viral hepatitis C without hepatic coma; I45.10 Unspecified right bundle-branch block; F19.90 Other psychoactive substance use, unspecified, uncomplicated; F17.200 Nicotine dependence, unspecified, uncomplicated; Z53.21 Procedure and treatment not carried out due to patient leaving prior to being seen by health care provider
CPT/HCPCS: 71010; 80053; 81001; 83605; 85025; 86403; 87040; 87070; 87147; 87185; 87186; 87205; 93005; 96365; 96366; 96375; 96376; 99285; G0378; J1170; J1956; J2543; J3370; J7030; J7040

== ENCOUNTER 2017-02-11 22:14 | Emergency (ER) | payer SELFPAY ==
[~2017-02-11] VITALS: Ht 185.4 cm; Wt 84.0 kg
[2017-02-11 22:15] VITALS: BP 139/77; PULSE 101; RESP 16; TEMP 98.3; O2SAT 100
[2017-02-12 00:24] VITALS: BP 123/69; PULSE 65; RESP 16; TEMP 97.7; O2SAT 100
[2017-02-12] MEDS ORDERED: SODIUM CHLORIDE 0.9% FLUSH 10 ML FLUSH IVF PRN (00:30)
--- NOTE | 2017-02-12 00:51 | PD ---
HPI . Arm wounds Chief Complaint: General Weakness Time Seen by Provider: 00:30 Travel History International Travel<30 days: No Contact w/Intl Traveler<30days: No Traveled to known affect area: No History of Present Illness HPI This patient presents complaining with increased pain in his arm wounds, redness and swelling of his feet and feeling poorly. This patient has a history of cellulitis in both forearms drug abuse. He has been seen here off and on since September. He has been treated with vancomycin, Dalvance and Levaquin. He has always left AMA before treatment has been completed. He has never been able to give his Levaquin filled because of financing. He presents tonight complaining with worsening symptoms for the last couple of days. He states that he is treating his arm wounds with Betadine and an antibiotic salve. PFSH Past Medical History Asthma: No Blood Disorders: No Anxiety: Yes Depression: Yes Heart Rhythm Problems: No Cancer: No Cardiovascular Problems: No High Cholesterol: No Chemotherapy: No Chest Pain: No Congestive Heart Failure: No COPD: No Diabetes: No Diminished Hearing: No Endocrine: No Genitourinary: No Hepatitis: Yes (hep c) Immune Disorder: No Musculoskeletal: No Neurologic: No Psychiatric: Yes Reproductive: No Respiratory: No Integumentary: Yes (open wounds to b/l arms) Radiation Therapy: No Sleep Apnea: No Thyroid Disease: No Past Surgical History Surgical History: No Previous Surgery Other Surgery: No Social History Alcohol Use: No Tobacco Use: Yes (1 ppd) Substance Use: Yes (POT, PAIN KILLERS IV AND ORALLY) Allergies-Medications (Allergen,Severity, Reaction): Coded Allergies: *MDRO Multi-Drug Resistant Organism (Verified Adverse Reaction, Unknown, ) MRSA (arm) 01/05/17 Reported Meds & Prescriptions Reported Meds & Active Scripts Active No Active Prescriptions or Reported Medications Review of Systems Except as stated in HPI: all other systems reviewed are Neg General / Constitutional: Positive: Other (feeling generally poorly), No: Fever , Chills Cardiovascular: No: Chest Pain or Discomfort Respiratory: No: Shortness of Breath Gastrointestinal: No: Nausea, Vomiting Skin: Positive Change in Pigmentation, Positive Lesions Physical Exam Narrative GENERAL: This patient is awake and alert. SKIN: warm/dry. He has ulcerations on the dorsal aspect of both forearms. They measure 6-8 cm by about 3-4 cm. Some of the area has started to granulate. There is no purulence. There is some scarring around the ulcerative lesions compatible with partial healing. He has erythema and warmth of both feet and ankles. HEAD: Normocephalic. Atraumatic. EYES: Pupils equal and round. No scleral icterus. No injection or drainage. ENT: No nasal bleeding or discharge. Mucous membranes pink and moist. NECK: Trachea midline. Full range of motion without pain.. CARDIOVASCULAR: Regular rate and rhythm. Heart sounds are normal. RESPIRATORY: No accessory muscle use. Clear to auscultation. Breath sounds equal bilaterally. GASTROINTESTINAL: Abdomen soft. Nontender. Bowel sounds present. Nondistended. MUSCULOSKELETAL: No obvious deformities. NEUROLOGICAL: Awake and alert. No obvious cranial nerve deficits. Motor grossly within normal limits. Normal speech. PSYCHIATRIC: Appropriate mood and affect; insight and judgment normal. Data Data Last Documented VS Vital Signs Date Time Temp Pulse Resp B/P (MAP) Pulse Ox O2 Delivery O2 Flow Rate FiO2 02/12/17 00:24 97.7 65 16 123/69 (87) 100 Room Air Orders Orders Basic Metabolic Panel (Bmp) (02/12/17 00:30) Complete Blood Count With Diff (02/12/17 00:30) Blood Culture (02/12/17 00:30) Iv Access Insert/Monitor (02/12/17 00:30) Sodium Chloride 0.9% Flush (Ns Flush) (02/12/17 00:30) Lactic Acid (02/12/17 00:30) Labs Laboratory Tests Test 02/12/17 00:35 White Blood Count 10.9 TH/MM3 Red Blood Count 4.97 MIL/MM3 Hemoglobin 11.3 GM/DL Hematocrit 34.8 % Mean Corpuscular Volume 70.1 FL Mean Corpuscular Hemoglobin 22.8 PG Mean Corpuscular Hemoglobin Concent 32.5 % Red Cell Distribution Width 20.0 % Platelet Count 215 TH/MM3 Mean Platelet Volume 9.1 FL Neutrophils (%) (Auto) 48.8 % Lymphocytes (%) (Auto) 32.2 % Monocytes (%) (Auto) 16.2 % Eosinophils (%) (Auto) 2.2 % Basophils (%) (Auto) 0.6 % Neutrophils # (Auto) 5.3 TH/MM3 Lymphocytes # (Auto) 3.5 TH/MM3 Monocytes # (Auto) 1.8 TH/MM3 Eosinophils # (Auto) 0.2 TH/MM3 Basophils # (Auto) 0.1 TH/MM3 CBC Comment AUTO DIFF Blood Urea Nitrogen 9 MG/DL Creatinine 0.82 MG/DL Random Glucose 81 MG/DL Calcium Level 8.7 MG/DL Sodium Level 136 MEQ/L Potassium Level 4.3 MEQ/L Chloride Level 105 MEQ/L Carbon Dioxide Level 25.0 MEQ/L Anion Gap 6 MEQ/L Estimat Glomerular Filtration Rate 111 ML/MIN Lactic Acid Level 0.8 mmol/L [facility] Medical Decision Making Medical Screen Exam Complete: Yes Emergency Medical Condition: Yes Medical Record Reviewed: Yes (this patient has been treated here several times since September for similar complaints. He has sporadically been treated with vancomycin, Dalvance and Levaquin) Differential Diagnosis My differential diagnosis includes but is not limited to localized wound infection, cellulitis, abscess Narrative Course This is an IV drug abuser with a history of cellulitis and a history of several previous visits to the hospital with subsequent AMA discharges for the same problem. CBC & BMP Diagram 02/12/17 00:35 Calcium Level 8.7 Lactic acid level is normal. He has no evidence of sepsis at this time. He will be discharged on oral antibiotics. I have reviewed his last several sets of blood cultures. They have all grown out organisms which are sensitive to Bactrim. Therefore, he will be empirically treated with Bactrim. Diagnosis Primary Impression: Cellulitis Qualified Codes: L03.119 - Cellulitis of unspecified part of limb Patient Instructions: Cellulitis (DC), General Instructions Scripts Sulfamethoxazole-Trimethoprim (Bactrim DS) 800-160 Mg Tab 1 TAB PO BID for Infection, #20 TAB 0 Refills Prov: Olena Prabhakar MD 02/12/17 Disposition: DISCHARGE HOME Condition: Stable Olena Prabhakar MD Feb 12, 2017 00:51
[2017-02-12 01:05] LABS: AUTOMATED NEUTROPHIL # 5.3 TH/MM3 (1.8-7.7); BASOPHIL # 0.1 TH/MM3 (0-0.2); BASOPHIL % 0.6 % (0.0-2.0); EOSINOPHIL # 0.2 TH/MM3 (0-0.4); EOSINOPHIL % 2.2 % (0.0-4.0); HEMATOCRIT 34.8 % (39.0-51.0); LYMPH % 32.2 % (9.0-44.0); LYMPHOCYTE # 3.5 TH/MM3 (1.0-4.8); MEAN CELL VOLUME 70.1 FL (80.0-100.0); MEAN CORPUSCULAR HEMOGLOBIN 22.8 PG (27.0-34.0); MEAN CORPUSCULAR HGB CONC 32.5 % (32.0-36.0); MONO % 16.2 % (0.0-8.0); NEUT % 48.8 % (16.0-70.0); PLATELET COUNT 215 TH/MM3 (150-450); RED BLOOD COUNT 4.97 MIL/MM3 (4.50-5.90); WHITE BLOOD COUNT 10.9 TH/MM3 (4.0-11.0)
[2017-02-12 01:14] LABS: HEMO FLAGS AUTO DIFF
[2017-02-12 01:25] LABS: POTASSIUM 4.3 MEQ/L (3.5-5.1)
[2017-02-12] MEDS ORDERED: BACT800T5 PO (01:48)
[2017-02-12] MEDS ORDERED: VANCOMYCIN INJ 1,000 MG in SODIUM CHLOR 0.9% 250 ML INJ 250 ML IV ONE (02:00)
[2017-02-12 02:07] LABS: OVALOCYTES 1+ (NORMAL); SCAN/DIFF AUTO DIFF CONFIRMED; TARGET CELLS 1+ (NORMAL)
== END 2017-02-12 04:08 | disposition home or self-care (01) ==
LOC: NEPC 22:14
DX: L03.116 Cellulitis of left lower limb (principal); M79.89 Other specified soft tissue disorders; Z72.0 Tobacco use
CPT/HCPCS: 80048; 83605; 85025; 87040; 96365; 99284; J3370; J7050